=== PATIENT | female | born 1995 | race Caucasian/White ===

== ENCOUNTER → 2016-06-26 | Outpatient (CLI) | payer OTHER, MEDICAID ==
[~2016-06-26] MED LIST: *XRAY -; ACET50TA PO; ALBUTEROL INHALATION; ANUS2.5C2 PR; BACT800T; DOCU10ELUD PO; IRON27TA PO; LABE20TAB PO; MOM30SS PO; PRENTAB74 PO; PROV90AE; TUMS500C PO; TYLENOL #3; TYLENOL#3 PO; ZITHROZPAK PO; [UNRECOGNIZED DRUG - OTHER] PO
[2016-06-26 17:54] LABS: BASO # 0.1 K/mm3 (0.0-0.2); BASO % 1.6 % (0.0-1.0); LARGE UNSTAINED CELL # 0.1 K/mm3 (0.0-0.4); LARGE UNSTAINED CELL % 1.4 % (0.0-4.0); LYMPH # 0.9 K/mm3 (1.5-6.5); LYMPH % 20.8 % (24.0-44.0); MEAN CORPUSCULAR HEMOGLOBIN 25.3 pg (27.0-33.0); MEAN CORPUSCULAR HGB CONC 33.3 g/dl (32.0-36.5); MONO # 0.2 K/mm3 (0.0-0.8); MONO % 4.8 % (0.0-5.0); NEUTROPHILS # 2.8 K/mm3 (1.8-7.7); NEUTROPHILS % 70.3 % (36.0-66.0); PLATELET COUNT, AUTOMATED 132 k/mm3 (150-450)
[2016-06-26 18:01] LABS: ALT/SGPT 16 U/L (12-78); AST/SGOT 11 U/L (15-37); BILIRUBIN,TOTAL 0.2 MG/DL (0.2-1.0); CREATININE FOR GFR 0.72 MG/DL (0.55-1.02); GLOMERULAR FILTRATION RATE > 60.0 (>60); T UPTAKE 23 % (30-39); URIC ACID 3.9 MG/DL (2.6-6.0)
[2016-06-28 10:01] LABS: HBsAg Prenatal NEGATIVE (NEGATIVE)
[2016-06-28 13:35] LABS: CONTROL LINE INT CTR LINE PRESENT; HIV SCRN NEGATIVE (NEGATIVE); HIV SCRN1 NEGATIVE (NEGATIVE)
== END ==
LOC: M LAB 16:25
PROVIDERS: ATTEND Advanced Practice Midwife
DX: O10.012 Pre-existing essential hypertension complicating pregnancy, second trimester (principal); Z36 Encounter for antenatal screening of mother

== ENCOUNTER → 2016-06-28 | Outpatient (CLI) | payer OTHER, MEDICAID ==
--- NOTE | 2016-06-28 10:24 | REP ---
OB ULTRASOUND: Real-time sonographic evaluation of the gravid uterus is performed utilizing transabdominal and endovaginal technique. There is a single living intrauterine gestation with the estimated gestational age 17 weeks 3 days, EDC 12/03/2016. Biometry and Growth: BPD 37 mm = 17 weeks 3 days HC 142 mm = 17 weeks 3 days AC 120 mm = 17 weeks 5 days FL 23 mm = 17 weeks 0 days HC/AC ratio: 1.18 within normal range. Estimated weight 192 grams 46th percentile. SEEN/GROSSLY UNREMARKABLE Lateral ventricles No Posterior fossa No Upper lip No Four-chamber heart Yes LVOT No RVOT No Stomach Yes Cord insertion No Three vessel cord Yes Kidneys No Bladder Yes Spine No Cervical length: Cervix is closed and measures 3.6 cm in length. heart rate: 150 beats per minute position: Vertex. Placenta: Placenta is posterior. There appears to be complete placenta previa, with the inferior edge of the placenta completely covering the internal cervical os. Amniotic fluid: Amniotic fluid appears within normal limits. The exam is limited due to early gestational age, position and body habitus. Signed by Wang Chacon MD 06/28/2016 01:28 P
== END ==
LOC: M RAD 08:09
PROVIDERS: ATTEND Advanced Practice Midwife
DX: O10.012 Pre-existing essential hypertension complicating pregnancy, second trimester (principal); Z3A.17 17 weeks gestation of pregnancy

== ENCOUNTER → 2016-08-08 | Outpatient (CLI) | payer OTHER, MEDICAID ==
--- NOTE | 2016-08-08 13:07 | REP ---
Clinical: Anatomical evaluation. Comparison: 06/28/2016 . Findings: Examination demonstrates a single live intrauterine in cephalic presentation. motion is identified by technologist. Placenta is noted posterior and grade zero without evidence for placenta previa or abruption. Amniotic fluid volume is normal. Cervix measures 3.1 cm in length and appears closed. No evidence for nuchal cord. Gestational age by LMP left 23 weeks 2-day with JENNIFER it is 12/03/2016 . Gestational age by current measurements 23 weeks 2-day with JENNIFER is 12/03/2016 . FHR equals 163 beats per minute. BPD 5.4 cm 22 weeks 3-day HC 20.2 cm 22 weeks 2 days AC 18.7 cm 23 weeks 4 days FL 4.3 cm 24 weeks 0 days HL 3.9 cm 24 weeks 0 days HC/AC ratio 1.08 Estimated weight 604 grams (54th percentile). Anatomical assessment demonstrates normal structures including cranium, choroid plexus, cavum, cerebellum/posterior fossa, four-chamber heart, diaphragm, stomach, cord insertion/three-vessel cord, kidneys/bladder, spine, and extremities. Limited evaluation of the facial features, lungs, and cardiac ventricular outflow tracts. Impression: Single live intrauterine in cephalic presentation demonstrating appropriate interval growth. No gross abnormalities are identified. Anatomical limitations may warrant followup. Signed by Kolby Hobbs MD 08/08/2016 12:59 P
== END ==
LOC: M RAD 11:26
PROVIDERS: ATTEND Obstetrics & Gynecology
DX: Z36 Encounter for antenatal screening of mother (principal); Z3A.23 23 weeks gestation of pregnancy

== ENCOUNTER → 2016-10-04 | Outpatient (CLI) | payer OTHER, MEDICAID ==
--- NOTE | 2016-10-04 16:33 | REP ---
OB ULTRASOUND: Real-time sonographic evaluation of the gravid uterus performed. There is a single living intrauterine gestation. The estimated gestational age is 31 weeks 3 days with EDC 12/03/2016. Today's measurements indicate appropriate growth. BPD 77 mm = 33 weeks 5 days, 41st percentile HC 290 mm = 31 weeks 6 days, 57th percentile AC 269 mm = 31 weeks 0 days, 44th percentile FL 61 mm = 31 weeks 6 days, 56th percentile HC/AC ratio is 1.08 within normal range. Estimated weight 1743 grams, 41st percentile. Cervix closed and measures 3.8 cm in length. heart rate 141 beats per minute. Amniotic fluid within normal limits. TAMMY 12.8, within normal range of 8.7 to 24.0. S/D ratio 2.39 is slightly below normal range of 2.5 to 3.5. RI 0.58 is slightly below normal range of 0.59 to 0.75. SEEN/GROSSLY UNREMARKABLE Lateral ventricles yes Posterior fossa yes Upper lip yes Four-chamber heart yes LVOT yes RVOT yes Stomach yes Cord insertion yes Three vessel cord yes Kidneys yes Bladder yes Spine yes position: Vertex. Placenta: Posterior and fundal, grade 1 with no previa or abruption. Signed by Wang Chacon MD 10/04/2016 04:56 P
== END ==
LOC: M RAD 14:04
PROVIDERS: ATTEND Advanced Practice Midwife
DX: Z36 Encounter for antenatal screening of mother (principal); Z3A.31 31 weeks gestation of pregnancy

== ENCOUNTER → 2016-10-04 | Outpatient (CLI) | payer OTHER, MEDICAID ==
[2016-10-04 18:18] LABS: BASO % 0.1 % (0.0-1.0); EOS % 0.7 % (0.0-3.0); LARGE UNSTAINED CELL # 0.1 K/mm3 (0.0-0.4); LARGE UNSTAINED CELL % 1.5 % (0.0-4.0); LYMPH # 0.8 K/mm3 (1.5-6.5); LYMPH % 16.7 % (24.0-44.0); MEAN CORPUSCULAR HEMOGLOBIN 23.7 pg (27.0-33.0); MEAN CORPUSCULAR HGB CONC 31.3 g/dl (32.0-36.5); MEAN CORPUSCULAR VOLUME 75.6 fl (80.0-96.0); MONO # 0.2 K/mm3 (0.0-0.8); MONO % 3.2 % (0.0-5.0); NEUTROPHILS # 3.9 K/mm3 (1.8-7.7); NEUTROPHILS % 77.8 % (36.0-66.0); PLATELET COUNT, AUTOMATED 122 k/mm3 (150-450); RED CELL DISTRIBUTION WIDTH 15.3 % (11.5-14.5)
== END ==
LOC: M LAB 15:21
PROVIDERS: ATTEND Obstetrics & Gynecology
DX: Z36 Encounter for antenatal screening of mother (principal)

== ENCOUNTER → 2016-10-24 | Outpatient (CLI) | payer OTHER, MEDICAID ==
--- NOTE | 2016-10-25 03:35 | REP ---
Clinical: Anatomical evaluation. Comparison: 10/04/2016 . Findings: Examination demonstrates a single live intrauterine in cephalic presentation. motion is identified by technologist. Placenta is noted posteriorly and grade II without evidence for placenta previa or abruption. Amniotic fluid volume is normal. Cervix measures 3.0 cm in length and appears closed. No evidence for nuchal cord. Gestational age by LMP 34 weeks 2 days with JENNIFER 12/03/2016 . Gestational age by current measurements 34 weeks 1 day with JENNIFER 12/04/2016 . FHR equals 168 beats per minute. Estimated weight 2385 grams ( 46th percentile). Amniotic fluid index equals 10.1 cm (8.0 - 24.8). Umbilical cord SD ratio equals 2.71 (2.00 - 3.00). Anatomical assessment demonstrates normal structures including cranium, choroid plexus, cavum, cerebellum/posterior fossa, facial features, lungs, ventricular outflow tracts, diaphragm, stomach, three-vessel cord, kidneys/bladder. Impression: Single live advanced gestation in cephalic presentation demonstrating appropriate interval growth. Amniotic fluid index normal. In conjunction with prior examination anatomical assessment is complete and normal. Signed by Kolby Hobbs MD 10/25/2016 03:26 A
== END ==
LOC: M RAD 12:07
PROVIDERS: ATTEND Specialist
DX: Z34.83 Encounter for supervision of other normal pregnancy, third trimester (principal)

== ENCOUNTER → 2016-11-07 | Outpatient (REF) | payer OTHER, MEDICAID | LOC: M LAB REF 17:03 | PROVIDERS: ATTEND Advanced Practice Midwife | DX: Z36 Encounter for antenatal screening of mother (principal) ==

== ENCOUNTER → 2016-11-19 | Outpatient (CLI) | payer OTHER, MEDICAID ==
[~2016-11-19] MED LIST changes: +COLA100C3 PO; +PRENTAB9 PO
[2016-11-19 17:27] LABS: ALT/SGPT 23 U/L (12-78); AST/SGOT 19 U/L (15-37); BILIRUBIN,TOTAL 0.4 MG/DL (0.2-1.0); CREATININE FOR GFR 0.74 MG/DL (0.55-1.02); GLOMERULAR FILTRATION RATE > 60.0 (>60); URIC ACID 5.8 MG/DL (2.6-6.0)
[2016-11-19 18:00] LABS: MEAN CORPUSCULAR HEMOGLOBIN 22.8 pg (27.0-33.0); MEAN CORPUSCULAR HGB CONC 31.1 g/dl (32.0-36.5); MEAN CORPUSCULAR VOLUME 73.3 fl (80.0-96.0); RED CELL DISTRIBUTION WIDTH 15.8 % (11.5-14.5); WHITE BLOOD COUNT 6.8 K/mm3 (4.0-10.0)
== END ==
LOC: M LAB 15:37
PROVIDERS: ATTEND Advanced Practice Midwife
DX: O13.3 Gestational [pregnancy-induced] hypertension without significant proteinuria, third trimester (principal)

== ENCOUNTER 2016-11-21 11:06 | Inpatient (IN) | payer OTHER, MEDICAID ==
[~2016-11-21] VITALS: Ht 162.6 cm; Wt 105.0 kg
[2016-11-21] MEDS: PRENATAL VITAMIN TAB PO SCH (09:00)
[~2016-11-21 11:06] MED LIST changes: -COLA100C3 PO; +MEASLES,MUMPS,RUBELLA VACCINE INJ (MMR-II) (90707) SC SCH; -PRENTAB9 PO; +RHOGAM 300 MCG (1500 IU) INJ (J2790) IM SCH
[2016-11-21 11:25] VITALS: BP 136/76
[2016-11-21] MEDS ORDERED: OXYTOCIN 30 UNITS IN 0.9% NaCl 500ML IV BAG (J2590) As Ordered ONE (12:22)
[2016-11-21 12:38] VITALS: BP 134/79
[2016-11-21] MEDS ORDERED: METHYLERGONOVINE MALEATE 0.2 MG TAB PO PRN (13:00)
[2016-11-21] MEDS ORDERED: ACETAMINOPHEN 500 MG TAB PO PRN (13:00)
[2016-11-21] MEDS ORDERED: DIBUCAINE 1% OINTMENT 30GM TOP PRN (13:00)
[2016-11-21] MEDS ORDERED: ONDANSETRON 4MG/2ML VIAL (J2405) IV PRN (13:00)
[2016-11-21 13:22] VITALS: BP 140/72
--- NOTE | 2016-11-21 13:41 | HPE ---
DATE OF ADMISSION: 11/21/2016 21-year-old, (G) 4, para (P) 3 female at 38 and 2/7 weeks gestation by 17 week ultrasound and expected date of confinement (EDC) of 12/03/2016 who presents with regular contractions for the last several hours. She has had a slight amount of vaginal bleeding. There is good movement. COURSE: The patient initiated care at 15 weeks gestation. Her blood pressure was 124/74 and weight 243 pounds. Her course was unremarkable. She has a history of chronic hypertension and did not require medications during . MEDICAL HISTORY: Chronic hypertension. SURGICAL HISTORY: None. ALLERGIES: - IBUPROFEN - AUGMENTIN - CEFZIL - PEDIAZOLE SOCIAL HISTORY: The patient is . She denies cigarettes, alcohol or drug use. FAMILY HISTORY: Noncontributory. PHYSICAL EXAMINATION: Blood pressure 137/84. Pulse 80. She appears uncomfortable. Head and Neck Exam: Normal. Lungs: Clear. Heart: Regular rate and rhythm. Abdomen: Nontender. Gravid. heart tones Category 1. Sterile Vaginal Exam: 10 cm dilated, -1 station, bulging membranes, intact. Contractions every 3-4 minutes. Extremities: Nontender. LABS: Blood type O positive. Rubella immune. RPR nonreactive. Hepatitis B and C negative. Diabetes screen 140. GBS negative on 11/07/2016. ASSESSMENT: 21-year-old, G4, P3, female at 38 and 2/7 weeks gestation who presents in active labor. The patient is admitted on 11/21/2016. Anticipate vaginal delivery.
[2016-11-21 14:20] LABS: MEAN CORPUSCULAR HEMOGLOBIN 22.4 pg (27.0-33.0); MEAN CORPUSCULAR HGB CONC 31.2 g/dl (32.0-36.5); RED CELL DISTRIBUTION WIDTH 15.7 % (11.5-14.5)
[2016-11-21 14:29] VITALS: BP 131/73
[2016-11-21 14:40] VITALS: BP 143/80
[2016-11-21 18:40] VITALS: BP 148/76
--- NOTE | 2016-11-21 20:38 | DN ---
DATE OF DELIVERY: 11/21/2016 PREDELIVERY DIAGNOSIS: Term labor. POSTDELIVERY DIAGNOSIS: Delivered. PROCEDURE: Spontaneous vaginal delivery. ASSOCIATE RESEARCH SCIENTIST: Dr. Damian Betts ANESTHESIA: None. ESTIMATED BLOOD LOSS: 300 mL. FINDINGS: 7 pound 12 ounce female infant. scores 9 and 10. DELIVERY SUMMARY: After a short second stage of approximately three pushes, the patient had spontaneous delivery of a 7 pound 12 ounce female , scores 9 and 10 with no delivery anesthesia. There was no nuchal cord. The shoulders delivered spontaneously with ease. The infant cried spontaneously and was handed to the mother. Cord was doubly clamped and cut. Placenta delivered spontaneously and appeared to be intact. There were no vaginal lacerations present.
[2016-11-21] MEDS ORDERED: DOCUSATE SODIUM 100 MG CAP PO PRN (21:00)
[2016-11-22 06:07] VITALS: BP 117/64
[2016-11-22] MEDS: PRENATAL VITAMIN TAB PO SCH (08:11)
[2016-11-22 18:32] VITALS: BP 119/76
[2016-11-23 05:57] VITALS: BP 120/59
[2016-11-23] MEDS: PRENATAL VITAMIN TAB PO SCH (07:47)
[2016-11-23] MEDS ORDERED: COLA100C3 PO (10:20)
[2016-11-23] MEDS ORDERED: PRENTAB9 PO (10:20)
[2016-11-23] MEDS ORDERED: ACET50TA PO (10:20)
== END 2016-11-23 11:37 | disposition home or self-care (01) | DRG 560 ==
LOC: M LDO 11:06 → M LDI 12:19 → M OBS 15:21
PROVIDERS: ADMIT Specialist; ATTEND Specialist
PROC: 10E0XZZ Delivery of Products of Conception, External Approach (ICD-10-PCS; principal; 2016-11-21)
DX: O80 Encounter for full-term uncomplicated delivery (principal); Z37.0 Single live birth; Z3A.38 38 weeks gestation of pregnancy

== ENCOUNTER → 2019-06-18 | Outpatient (CLI) | payer BC, OTHER ==
[~2019-06-18] MED LIST changes: -ACET50TA PO; +COLA100C5 PO; -DOCU10ELUD PO; +DOCU5LIQ PO; +MAPA500T17 PO; +MAPA500T2 PO; -MEASLES,MUMPS,RUBELLA VACCINE INJ (MMR-II) (90707) SC SCH; +PRENTAB9 PO; -RHOGAM 300 MCG (1500 IU) INJ (J2790) IM SCH
[2019-06-18 14:14] LABS: BASO % 0.4 % (0.0-1.0); EOS % 0.7 % (0.0-3.0); LYMPH # 0.9 10^3/uL (1.5-5.0); LYMPH % 15.5 % (24.0-44.0); MEAN CORPUSCULAR HGB CONC 29.7 g/dl (32.0-36.5); MEAN CORPUSCULAR VOLUME 73.9 fl (80.0-96.0); MONO # 0.3 10^3/uL (0.0-0.8); MONO % 5.8 % (0.0-5.0); NEUTROPHILS # 4.3 10^3/uL (1.5-8.5); NEUTROPHILS % 77.4 % (36.0-66.0); PLATELET COUNT, AUTOMATED 176 10^3/uL (150-450); RED BLOOD COUNT 5.01 10^6/uL (4.00-5.40); WHITE BLOOD COUNT 5.6 10^3/uL (4.0-10.0)
[2019-06-18 15:37] LABS: HEPATITIS B SURFACE ANTIGEN NEGATIVE (NEGATIVE); RUBELLA IgG QUALITATIVE IMMUNE (IMMUNE)
[2019-06-18 15:39] LABS: HEPATITIS C VIRUS ABY INDEX 0.2 INDEX (<0.8); HIV 1&2 SCREEN CENTAUR NEGATIVE (NEGATIVE)
[2019-06-18 15:47] LABS: CHLAMYDIA DNA AMPLIFICATION NEGATIVE (NEGATIVE); GC DNA AMPLIFICATION NEGATIVE (NEGATIVE)
== END ==
LOC: M LAB 12:32
PROVIDERS: ATTEND Advanced Practice Midwife
DX: Z34.81 Encounter for supervision of other normal pregnancy, first trimester (principal); Z3A.08 8 weeks gestation of pregnancy

== ENCOUNTER → 2019-07-02 | Outpatient (CLI) | payer BC, OTHER | LOC: M PLALAB 10:44 | PROVIDERS: ATTEND Advanced Practice Midwife | DX: Z36.89 Encounter for other specified antenatal screening (principal) ==

== ENCOUNTER → 2019-08-16 | Outpatient (CLI) | payer BC, OTHER ==
--- NOTE | 2019-08-16 16:10 | REP ---
Surgical ultrasound for anatomy: There is a single intrauterine gestation in a vertex presentation. There is movement and cardiac activity. The heart rate is 139 beats per minute. The placenta is anterior. There is no placenta previa. The placenta is grade 1. The amniotic fluid volume subjectively is normal. The cervix measures 3.8 cm in length. heart rate is 100 and 39 beats per minute. Gestational age by today's ultrasound is 19 weeks 2 days/JENNIFER 01/08/2020. weight is 297 grams/0 pounds, 10 ounces. This is the 55th percentile for 19 weeks 2 days. The following anatomic structures are identified and are unremarkable: Cranium, choroid plexus, cavum septum pellucidum, cerebellum, cisterna magna, facial profile, upper lip, four-chamber heart, cardiac right and left ventricular outflow tracts, diaphragm, stomach, cord insertion, three-vessel cord, kidneys, bladder, spine and upper lower extremities. There are no anomalies. Electronically Signed by Wang Gaines MD 08/16/2019 04:02 P
== END ==
LOC: M WHC 13:43
PROVIDERS: ATTEND Advanced Practice Midwife
DX: Z34.92 Encounter for supervision of normal pregnancy, unspecified, second trimester (principal); Z3A.19 19 weeks gestation of pregnancy

== ENCOUNTER → 2019-11-04 | Outpatient (CLI) | payer BC ==
--- NOTE | 2019-11-05 03:07 | REP ---
Clinical: Growth evaluation. Comparison: 08/16/2019 . Findings: Examination demonstrates a single live intrauterine in cephalic presentation. motion is identified by technologist. Placenta is noted anterior and grade I without evidence for placenta previa or abruption. Amniotic fluid volume is normal. Cervix measures 3.2 cm in length and appears closed. No evidence for nuchal cord. Gestational age by LMP 30 weeks 5 days with JENNIFER 01/08/2020 . Gestational age by current measurements 31 weeks 6 days with JENNIFER 12/31/2019 . FHR equals 146 beats per minute. Amniotic fluid index: 15.1 cm Estimated weight by current biometrical measurements 1908 grams ( 74th percentile). Anatomical assessment demonstrates normal structures including cranium, choroid plexus, cavum, cerebellum/posterior fossa, facial features, lungs, four-chamber heart/ventricular outflow tracts, diaphragm, stomach, cord insertion/three-vessel cord, kidneys/bladder, spine, and extremities. Impression: single live intrauterine in cephalic presentation demonstrating appropriate interval growth. No gross abnormalities are identified.
== END ==
LOC: M WHC 08:04
PROVIDERS: ATTEND Advanced Practice Midwife
DX: O10.013 Pre-existing essential hypertension complicating pregnancy, third trimester (principal); Z3A.31 31 weeks gestation of pregnancy

== ENCOUNTER → 2019-11-23 | Outpatient (REF) | payer OTHER ==
[~2019-11-23] MED LIST changes: +FIOR1CAP PO
[2019-11-23 16:13] LABS: HEMATOCRIT 30.2 % (36.0-47.0); MEAN CORPUSCULAR HEMOGLOBIN 21.4 pg (27.0-33.0); MEAN CORPUSCULAR HGB CONC 29.8 g/dl (32.0-36.5); MEAN CORPUSCULAR VOLUME 71.7 fl (80.0-96.0); PLATELET COUNT, AUTOMATED 143 10^3/uL (150-450); RED BLOOD COUNT 4.21 10^6/uL (4.00-5.40); WHITE BLOOD COUNT 5.5 10^3/uL (4.0-10.0)
[2019-11-23 16:42] LABS: CREATININE,RANDOM URINE 35.3 MG/DL; TOTAL PROTEIN,RANDOM URINE 6.4 MG/DL (0.0-12.0)
[2019-11-23 16:54] LABS: ALT/SGPT 16 U/L (12-78); BILIRUBIN,TOTAL 0.3 MG/DL (0.2-1.0); CREATININE FOR GFR 0.59 MG/DL (0.55-1.30); GLOMERULAR FILTRATION RATE > 60.0 (>60); LDH LACTATE DEHYDROGENASE 190 U/L (84-246)
== END ==
LOC: M PLALAB 14:06
PROVIDERS: ATTEND Specialist
DX: O14.90 Unspecified pre-eclampsia, unspecified trimester (principal)

== ENCOUNTER → 2019-11-25 | Outpatient (CLI) | payer BC ==
--- NOTE | 2019-11-26 03:17 | REP ---
Clinical: Growth evaluation. Comparison: 11/04/2019 . Findings: Examination demonstrates a single live intrauterine in cephalic presentation. motion is identified by technologist. Placenta is noted anterior and grade I I without evidence for placenta previa or abruption. Amniotic fluid volume is normal. Cervix measures 3.0 cm in length and appears closed. Nuchal cord cannot be excluded. Gestational age by first US 33 weeks 5 days with JENNIFER 01/08/2020 . Gestational age by current measurements 33 weeks 4 days with JENNIFER 01/09/2020 . FHR equals 158 beats per minute. Estimated weight 2302 grams ( 49th percentile). Amniotic fluid index: 11.1 cm Impression: 1. Single live intrauterine in cephalic presentation demonstrating appropriate interval growth. 2. Nuchal cord cannot be excluded.
== END ==
LOC: M WHC 09:18
PROVIDERS: ATTEND Advanced Practice Midwife
DX: O10.013 Pre-existing essential hypertension complicating pregnancy, third trimester (principal); Z3A.33 33 weeks gestation of pregnancy

== ENCOUNTER → 2019-11-26 | Outpatient (REF) | payer OTHER | LOC: M SFHCWAGY 17:34 | PROVIDERS: ATTEND Specialist | DX: O10.013 Pre-existing essential hypertension complicating pregnancy, third trimester (principal) ==

== ENCOUNTER 2019-11-29 07:52 | Outpatient (CLI) | payer BC, OTHER ==
[~2019-11-29] VITALS: Ht 162.6 cm; Wt 108.9 kg
[~2019-11-29 07:52] MED LIST changes: -FIOR1CAP PO
[2019-11-29 07:55] VITALS: BP 130/75
[2019-11-29] MEDS ORDERED: FIOR1CAP PO (08:18)
[2019-11-29 08:50] VITALS: BP 120/65
[2019-11-29] MEDS ORDERED: IRON SUCROSE 500 MG in NS 250 ML OVER 4 HRS IV ONE (09:00)
[2019-11-29 09:50] VITALS: BP 116/64
[2019-11-29 10:50] VITALS: BP 116/56
[2019-11-29 11:50] VITALS: BP 122/71
[2019-11-29 14:00] VITALS: BP 124/71
== END 2019-11-29 14:00 | disposition home or self-care (01) ==
LOC: M INFU 07:52
PROVIDERS: ATTEND Specialist
DX: D64.9 Anemia, unspecified (principal); Z88.1 Allergy status to other antibiotic agents; Z88.8 Allergy status to other drugs, medicaments and biological substances
CPT/HCPCS: 96365; 96366; J1756

== ENCOUNTER → 2019-12-16 | Outpatient (CLI) | payer BC ==
[~2019-12-16] MED LIST changes: +FIOR1CAP PO; +LABE200T32 PO
--- NOTE | 2019-12-16 10:18 | REP ---
OB ULTRASOUND: Real-time sonographic evaluation of the gravid uterus is performed. There is a single intrauterine gestation with an estimated gestational age 37 week 0 days, EDC 01/06/2020. Today's measurements indicate appropriate growth. Biometry and Growth: BPD 91 mm = 36 weeks 5 days, 47th percentile HC 337 mm = 38 weeks 5 days, 78th percentile AC 321 mm = 36 weeks 0 days, 35th percentile FL 72 mm = 36 weeks 6 days, 47th percentile HC/AC ratio 1.05, normal range 0.91 to 1.10. Estimated weight 2980 grams, 47th percentile. Cervical length: Closed and measures 3.1 cm in length. heart rate: 147 beats per minute. position: Vertex. Placenta: Anterior and grade 2 with no previa or abruption. Amniotic fluid: Within normal limits, TAMMY 10.8, normal range 7.5 to 24.4.
== END ==
LOC: M WHC 09:20
PROVIDERS: ATTEND Advanced Practice Midwife
DX: O10.013 Pre-existing essential hypertension complicating pregnancy, third trimester (principal); Z3A.37 37 weeks gestation of pregnancy

== ENCOUNTER 2019-12-20 10:00 | Inpatient (IN) | payer BC, OTHER ==
[2019-12-20] VITALS (16 sets, daily range): BP systolic 96–137; BP diastolic 51–81
[~2019-12-20] VITALS: Ht 162.6 cm; Wt 109.8 kg
[2019-12-20] MEDS: LABETALOL 200 MG TAB PO SCH ×2 (09:00→20:25)
[~2019-12-20 10:00] MED LIST changes: -LABE200T32 PO
[2019-12-20] MEDS ORDERED: LACTATED RINGER'S 1000 ML IV STA (11:00)
[2019-12-20] MEDS ORDERED: LABE200T32 PO (11:13)
[2019-12-20] MEDS ORDERED: TUMS500C PO (11:13)
[2019-12-20] MEDS ORDERED: miSOPROStol 50 MCG 1/2 TAB (S0191) PO ONE (11:15)
--- NOTE | 2019-12-20 11:40 | HPEPDOC ---
Obstetrical History & Physical General Date of Admission Dec 20, 2019 at 10:00 Primary Care Physician: AFRICA LEYVA CNM History of Present Illness Patient is a 24-year-old female who is a at 37.4 weeks gestation with an JENNIFER of 01/06/20 based off of her LMP and consistent with her first trimester ultrasound. She initiated care in her first trimester with [facility]. Her has been complicated by CHTN. She was started on Labetalol 100 mg BID then increased to 200 mg BID on 11/23/19. She also was diagnosed with anemia and had an iron transfusion on 11/29/19. She presents for IOL due to CHTN with increasing symptoms over the last few weeks along with a need fo ran increase in hypertensive medication. She currently denies any preeclamptic symptoms. Reports occasional contractions and active movement. She denies leaking of fluid. Information Provided By: Patient Care Care: Good Care Dating Final EDC: Jan 06, 2020 Final EDC by: LMP LMP: Apr 01, 2019 EGA at Admission: 37.4 Antepartum Course Diagnos(e)s CHTN anemia thrombocytopenia Height (inches): 24 Pre- weight (lbs.): 220 Admission Weight (lbs.): 239 Change in Weight (lbs.): 19 Past Medical History Past Obstetrical History #1: Past Obstetrical History: Primgravida Gestation: 40 Type of Delivery: Spontaneous Vaginal Del. (06/2012) Sex of Infant: Female (7 lbs. 6 oz.) Complications: No Past Obstetrical History #2: Past Obstetrical History: Multigravida Gestation: 38 Type of Delivery: Spontaneous Vaginal Del. (02/2014) Sex of : Male (7 lbs. 13 oz.) Complications: No Past Obstetrical History #3: Past Obstetrical History: Multigravida Gestation: 37 Type of Delivery: Spontaneous Vaginal Del. (09/2015) Sex of : Female (6 lbs. 1 oz.) Complications: Yes (GHTN) Past Obstetrical History #4: Past Obstetrical History: Multigravida Gestation: 38.2 Type of Delivery: Spontaneous Vaginal Del. 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 Past Medical History Medical History CHTN Surgical History: Denies/None Family History Significant Family History: Asthma, Hypertension, Other (thyroid disease) Social History Marital Status: Family situation: Spouse/partner home Psychosocial History: No pertinent psych hx * Smoker: non-smoker Alcohol: Denies Drugs: denies Abuse Violence Screening Have you been hit/kicked/slapp: No Have you been sexually assault: No Allergies Coded Allergies: cefprozil (Verified Allergy, Severe, THROAT SWELLS, 11/29/19) ibuprofen (Verified Allergy, Severe, THROAT CLOSES, SWELLING OF LIPS AND TONGUE, 11/29/19) erythromycin base (Verified Allergy, Intermediate, RASH AND ITCHING, 12/20/19) sulfisoxazole (Verified Allergy, Intermediate, RASH AND ITCHING, 12/20/19) vancomycin (Verified Allergy, Intermediate, RASH, 11/29/19) amoxicillin (Verified Allergy, Unknown, UNKNOWN - CHILD, 12/20/19) clavulanic acid (Verified Allergy, Unknown, UNKNOWN - CHILD, 12/20/19) Medications Scheduled Labetalol HCl (Labetalol HCl) 200 Mg Tablet, 200 MG PO BID No.137/Iron/Folic Acd ( Vitamin Tablet) 1 Tab Tab, 1 TAB PO DAILY Scheduled PRN Calcium Carbonate (Tums) 200 Mg Tab.chew, 1,000 MG PO for HEARTBURN Physical Examination Physical Examination GENERAL: Alert and oriented times three. BREAST: . ABDOMEN: Gravid and non-tender to touch. FETUS: Is vertex (VTX) by sterile vaginal examination (SVE), fetus is vertex (VTX) by [place]. HEART RATE: Regular rate and rhythm. LUNGS: Clear to auscultation (CTA). EXTREMITIES: Generalized edema bilateral legs and feet.. No clonus. Deep tendon reflexes (DTRs) + 2. Vital Signs/I&O Vital Signs Date Time Temp Pulse Resp B/P (MAP) Pulse Ox O2 Delivery O2 Flow Rate FiO2 12/20/19 10:30 98.3 93 16 120/81 (94) 98 Room Air Laboratory Data 24H LABS Laboratory Tests 2 12/20/19 10:20: Serology Scanned Report Hepatitis B Testing Item Value Date Time Creatinine 0.65 MG/DL 12/20/19 1140 Glomerular Filtration Rate > 60.0 12/20/19 1140 Uric Acid 5.1 MG/DL 12/20/19 1140 Total Bilirubin 0.3 MG/DL 12/20/19 1140 Aspartate Amino Transf (AST/SGOT) 21 U/L 12/20/19 1140 Alanine Aminotransferase (ALT/SGPT) 21 U/L 12/20/19 1140 Lactate Dehydrogenase 206 U/L 12/20/19 1140 CBC/BMP Item Value Date Time White Blood Count 5.4 10^3/uL 12/20/19 1140 Red Blood Count 4.36 10^6/uL 12/20/19 1140 Hemoglobin 9.9 g/dl L 12/20/19 1140 Hematocrit 32.9 % L 12/20/19 1140 Mean Corpuscular Volume 75.5 fl L 12/20/19 1140 Mean Corpuscular Hemoglobin 22.7 pg L 12/20/19 1140 Mean Corpuscular Hemoglobin Concent 30.1 g/dl L 12/20/19 1140 Red Cell Distribution Width 22.8 % H 12/20/19 1140 Platelet Count 181 10^3/uL 12/20/19 1140 Urine Culture: No Growth Pertinent Laboratoy Data Blood Type: O+ RBC Antibody Screen: Negative HIV: Negative Hepatitis B: Negative Hepatitis C: Negative Rapid Plasma Reagin: Nonreactive Rubella: Immune Chlamydia/Gonorrhea: Negative Group B Streptococcus: Negative Anatomy Ultrasound Ultrasound Date: Dec 16, 2019 Placenta Location: Anterior Normal Anatomy: Yes Placenta Previa: No Estimated Weight (grams): 2980 Vaginal Examination Dilation: 3 cm Effacement: other (75%) Station: -2 Cervical Consistency: Soft Cervical Position: Anterior Presentation: Cephalic presentation Position: Vertex (occiput) Assessment Heart Rate (FHR): 150 Variability: Moderate Accelerations: Positive Decelerations: None Tocometer Contractions: No Multi-drug resistant Organism: No history of MDRO Assessment/Plan Assessment IUP at 37.4 weeks gestation Category I FHR tracing GBS negative CHTN affecting anemia Plan Admit to L&D for induction of labor for CHTN during with the need for increasing medication recently. Dr. Lyons aware of patient being in department and plan of care collaborated with him. OON ad hetal. Diet: regular now and when switched to IV Pitocin clear liquid diet.. Group B Streptococcus (GBS) negative. Labs and intravenous (IV) per unit protocol. Counseled on Cytotec and IV Pitocin for induction of labor (IOL). Anesthesia consult per patient's request. Cytotec ordered and to be started per order. Anticipate cervical ripening. C-S as appropriate. AFRICA LEYVA CNM Dec 20, 2019 11:40
[2019-12-20 11:58] LABS: HEMATOCRIT 32.9 % (36.0-47.0); HEMOGLOBIN 9.9 g/dl (12.0-15.5); MEAN CORPUSCULAR HEMOGLOBIN 22.7 pg (27.0-33.0); MEAN CORPUSCULAR HGB CONC 30.1 g/dl (32.0-36.5); MEAN CORPUSCULAR VOLUME 75.5 fl (80.0-96.0); PLATELET COUNT, AUTOMATED 181 10^3/uL (150-450); RED BLOOD COUNT 4.36 10^6/uL (4.00-5.40); WHITE BLOOD COUNT 5.4 10^3/uL (4.0-10.0)
[2019-12-20 12:34] LABS: ALT/SGPT 21 U/L (12-78); BILIRUBIN,TOTAL 0.3 MG/DL (0.2-1.0); CREATININE FOR GFR 0.65 MG/DL (0.55-1.30); GLOMERULAR FILTRATION RATE > 60.0 (>60); LDH LACTATE DEHYDROGENASE 206 U/L (84-246); URIC ACID 5.1 MG/DL (2.6-6.0)
[2019-12-20] MEDS ORDERED: miSOPROStol 50 MCG 1/2 TAB (S0191) PV ONE (16:00)
--- NOTE | 2019-12-20 19:59 | IPNPDOC ---
Obstetrical Progress Note Date of Service Dec 20, 2019 Subjective Patient rpeorts she is feeling her contractions but is coping well. Objective Vital Signs Date Time Temp Pulse Resp B/P (MAP) Pulse Ox O2 Delivery O2 Flow Rate FiO2 12/20/19 18:42 98.6 64 16 122/71 (88) 12/20/19 10:30 98 Room Air Assessment Heart Rate (FHR): 135 Variability: Moderate Accelerations: Positive Decelerations: None Heart Rate Tracing: Category I Tocometer Contractions: Yes Frequency: regular Strength: palpated as moderate Sterile Vaginal Examination Dilation: 4 cm Effacement (%): 80% Station: -1 Cervical Consistency: Soft Cervical Position: Anterior Postion/Presentation: Cephalic presentation Assessment and Plan Age: 24 : 5 Term: 4 Pre-term: 0 Abortions: 0 Livin EGA at Admission: 37.4 Status: Reassuring Group B Streptococcus: Negative Anticipate: Vaginal Delivery Additional Comments AROM after discussing options with patient. Large amount of clear fluid with AROM. She desires to have an unmedicated delivery. IV Pitocin to be started per order. AFRICA LEYVA CNM Dec 20, 2019 19:59
[2019-12-20] MEDS ORDERED: LR 1,000 ML IV SCH (20:01)
[2019-12-20] MEDS ORDERED: OXYTOCIN DRIP 30 UNITS in IV 1 EA IV SCH (20:15)
--- NOTE | 2019-12-20 22:56 | IPNPDOC ---
Obstetrical Progress Note Date of Service Dec 20, 2019 Subjective Patient is uncomfortable with contractions but reports she is coping. Objective Vital Signs Date Time Temp Pulse Resp B/P (MAP) Pulse Ox O2 Delivery O2 Flow Rate FiO2 12/20/19 21:54 86 16 106/51 (69) 12/20/19 19:44 98.0 12/20/19 10:30 98 Room Air Assessment Heart Rate (FHR): 140 Variability: Moderate Accelerations: Positive Decelerations: Early Heart Rate Tracing: Category I Tocometer Frequency: regular Sterile Vaginal Examination Dilation: 6 cm Effacement (%): 90% Station: -1 Cervical Consistency: Soft Cervical Position: Anterior Assessment and Plan Additional Comments FSE placed to help with maintaining FHR tracing and for ease of patient with movement. AFRICA LEYVA CNM Dec 20, 2019 22:56
[2019-12-20] MEDS ORDERED: ONDANSETRON 4MG/2ML VIAL As Ordered ONE (23:28)
[2019-12-20] MEDS ORDERED: ONDANSETRON 4MG/2ML VIAL IV PRN (23:30)
[2019-12-21] VITALS (8 sets, daily range): BP systolic 98–114; BP diastolic 54–64
[2019-12-21] MEDS ORDERED: OXYTOCIN DRIP 30 UNITS in IV 1 EA IV SCH (00:21)
--- NOTE | 2019-12-21 00:28 | DNPDOC ---
[facility] Delivery Note Delivery Note DATE OF DELIVERY: 12/21/19 at 0001 PREDELIVERY DIAGNOSIS: 37-5/7 weeks' gestation and labor. POST DELIVERY DIAGNOSIS: Delivered. PROCEDURE: Spontaneous vaginal delivery. ASSURANCE SENIOR MANAGER: Afirca Escobedo CNM, ELEN ANESTHESIA: none. ESTIMATED BLOOD LOSS: 250 mL. FINDINGS: 6 pounds 15 ounces; 3140 grams; male , Score 8/9, nuchal cord times 2 loose, CHTN. DELIVERY SUMMARY: Patient is a 24-year-old female who is now a who pres ented to L&D for an induction of labor due to CHTN. She received 2 doses of Cytotec and IV Pitocin for induction. She progressed to fully dilated at 2355 and pushed to a living male in the GOLD position with restitution to LOT. The cord x2 was noted and reduced. The anterior shoulder delivered with ease and the corpus immediately followed. The baby was placed on the maternal abdomen active and crying with stimulation. The cord was clamped and cut by the FOB. a 3-vessel cord was noted. The placenta delivered spontaneously and intact at 0006. Uterine hemostasis was achieved via rapid infusion of IV Pitocin and fundal massage. The vagina, cervix, and perineum were inspected and found to be intact. All counts of instruments are correct. They are naming their son Buddy. She plans for breastfeed. Both mom and baby are in stable condition. AFRICA ESCOBEDO CNM Dec 21, 2019 00:28
[2019-12-21] MEDS ORDERED: DIBUCAINE 1% OINTMENT 30GM TOP PRN (00:30)
[2019-12-21] MEDS ORDERED: MEASLES,MUMPS,RUBELLA VACCINE INJ (MMR-II) (90707) SC SCH (00:30)
[2019-12-21] MEDS ORDERED: ACETAMINOPHEN TAB 650MG DOSE (2X325MG) PO PRN (00:30)
[2019-12-21] MEDS ORDERED: IBUPROFEN 600MG TAB PO PRN (00:30)
[2019-12-21] MEDS ORDERED: ACETAMINOPHEN 500 MG TAB PO PRN (00:30)
[2019-12-21] MEDS ORDERED: RHOGAM 300 MCG (1500 IU) INJ (J2790) IM SCH (00:30)
[2019-12-21] MEDS ORDERED: METHYLERGONOVINE MALEATE 0.2 MG TAB PO PRN (00:30)
[2019-12-21] MEDS ORDERED: IBUPROFEN 800 MG TAB PO PRN (00:30)
[2019-12-21] MEDS ORDERED: DOCUSATE SODIUM 100 MG CAP PO PRN (00:30)
[2019-12-21] MEDS ORDERED: ANUSOL HC CREAM 30GM TOP PRN (00:30)
[2019-12-21] MEDS: PRENATAL VITAMINS CHEWABLE TABLET PO SCH (08:36)
[2019-12-21] MEDS: LABETALOL 100 MG TAB PO SCH ×2 (08:36→21:13)
[2019-12-22 06:00] VITALS: BP 114/57
[2019-12-22 08:26] VITALS: BP 124/60
[2019-12-22] MEDS: LABETALOL 100 MG TAB PO SCH (08:26)
[2019-12-22] MEDS: PRENATAL VITAMINS CHEWABLE TABLET PO SCH (08:26)
== END 2019-12-22 13:52 | disposition home or self-care (01) | DRG 560 ==
LOC: M LDI 10:00 → M OBS 12-21 02:24
PROVIDERS: ADMIT Advanced Practice Midwife; ATTEND Advanced Practice Midwife
PROC: 3E033VJ Introduction of Other Hormone into Peripheral Vein, Percutaneous Approach (ICD-10-PCS; 2019-12-20)
PROC: 10907ZC Drainage of Amniotic Fluid, Therapeutic from Products of Conception, Via Natural or Artificial Opening (ICD-10-PCS; 2019-12-20)
PROC: 10E0XZZ Delivery of Products of Conception, External Approach (ICD-10-PCS; principal; 2019-12-21)
DX: O10.92 Unspecified pre-existing hypertension complicating childbirth (principal); D69.6 Thrombocytopenia, unspecified; O99.12 Other diseases of the blood and blood-forming organs and certain disorders involving the immune mechanism complicating childbirth; Z37.0 Single live birth; Z3A.37 37 weeks gestation of pregnancy; D64.9 Anemia, unspecified; O99.02 Anemia complicating childbirth; Z88.2 Allergy status to sulfonamides; Z88.8 Allergy status to other drugs, medicaments and biological substances; Z88.0 Allergy status to penicillin; Z88.6 Allergy status to analgesic agent

== ENCOUNTER → 2020-06-29 | Outpatient (REF) | payer OTHER ==
[~2020-06-29] MED LIST changes: +LABE200T32 PO
== END ==
LOC: M SFHCWAGY 13:30
PROVIDERS: ATTEND Advanced Practice Midwife
DX: Z12.4 Encounter for screening for malignant neoplasm of cervix (principal)

== ENCOUNTER 2021-05-09 09:54 | Emergency (ER) | payer BC, OTHER ==
[~2021-05-09] VITALS: Ht 165.1 cm; Wt 102.8 kg
[2021-05-09] MEDS ORDERED: ECOT81TA5 PO (10:01)
--- OUTSIDE RECORDS SUMMARY | 2021-05-09 10:01 | CCD | Continuity of Care Document ---
Demographics Address [address] [place] [address] Home Phone [phone] Preferred Language Unknown Marital Status Unknown Christian Affiliation Unknown Race White Ethnic Group Not or Author Author [facility] Organization Unknown Address [address] [place] [address] [place] [address] Phone [phone] Care Team Providers Care Early Intervention School Psychologist Name Role Phone [facility] [phone] Problems Description No Information Available Social History Type Date Description Comments Sex Unknown ETOH Use Denies alcohol use Tobacco Use Start: Unknown Patient has never smoked Tobacco Use Start: Unknown The Patient Has Never Vaped Smoking Status Reviewed: 03/21/21 The Patient Has Never Vaped Allergies and adverse reactions Active Allergies Criticality Reaction | Severity Comments Date Ibuprofen Unable to assess criticality Tongue swelling 10/09/2020 Augmentin Unable to assess criticality Tongue swelling 10/09/2020 Vancomycin Unable to assess criticality rash 10/09/2020 Erythromycin Unable to assess criticality Difficulty swallowing 03/21/2021 Medications Active Medications SIG Qnty Indications Ordering Provide r Date Tylenol Cold this am Unknown Immunizations Description No Information Available Vital Signs Date Vital Result Comment 03/21/2021 10:36am BP Systolic 130 mmHg BP Diastolic 81 mmHg Heart Rate 82 /min Respiratory Rate 20 /min O2 % BldC Oximetry 100 % Body Temperature 98.3 F Weight 200.00 lb Height 64 inches 5'4" BMI (Body Mass Index) 34.3 kg/m2 Pain Level 3 11/15/2020 9:54am BP Systolic 121 mmHg BP Diastolic 88 mmHg Heart Rate 91 /min Respiratory Rate 12 /min O2 % BldC Oximetry 96 % Body Temperature 96.2 F Weight 214.00 lb Height 64 inches 5'4" BMI (Body Mass Index) 36.7 kg/m2 Pain Level 4 Results Description No Information Available Procedures Date Code Description Status 03/21/2021 88714 Office/Outpatient Established Lo w MDM 20-29 Min Completed 11/15/2020 26099 Office/Outpatient Established Mo d MDM 30-39 Min Completed Medical Devices Description No Information Available Encounters Type Date Location Provider Dx Diagnosis Office Visit 03/21/2021 9:00a Main Office Farzaneh Pritchard.A. J0 6.9 Acute upper respiratory infection, unspecified Z20.828 Contact w and exposure to ot h viral communicable diseases Office Visit 11/15/2020 9:40a Main Office Sussy PritchardAMichael Taylor0 2.9 Acute pharyngitis, unspecified J06.9 Acute upper respiratory infe ction, unspecified Z20.828 Contact w and exposure to ot h viral communicable diseases Assessments Date Code Description Provider 03/21/2021 J06.9 Acute upper respiratory infectio n, unspecified Rodrigue Man, P.A. 03/21/2021 Z20.828 Contact with and (gaxiola spected) exposure to other viral communicable diseases Rodrigue Man, P.A. 11/15/2020 J02.9 Acute pharyngitis, unspecified Claudia Man, P.A. 11/15/2020 J06.9 Acute upper respiratory infectio n, unspecified Rodrigue Man, P.A. 11/15/2020 Z20.828 Contact with and (gaxiola spected) exposure to other viral communicable diseases Rodrigue Man, P.A. Plan of Treatment No Information Available Functional Status Description No Information Available Mental Status Description No Information Available Referrals Description No Information Available
--- OUTSIDE RECORDS SUMMARY | 2021-05-09 10:01 | CCD | Continuity of Care Document ---
Demographics Address [address] [place] [address] Home Phone [phone] Preferred Language Unknown Marital Status Unknown Uatsdin Affiliation Unknown Race White Ethnic Group Not or Author Author Corby GEORGES [facility] Organization Unknown Address [address] [place] [address] [place] [address] Phone [phone] Care Team Providers Care Director Global Intelligence Name Role Phone [facility] [phone] Problems Description No Information Available Social History [...] Available Procedures Date Code Description Status 03/21/2021 55890 Office/Outpatient Established Lo w MDM 20-29 Min Completed 11/15/2020 14708 Office/Outpatient Established Mo d MDM 30-39 Min Completed Medical Devices Description No Information Available Encounters Type Date Location Provider Dx Diagnosis Office Visit 03/21/2021 9:00a Main Office Naren Pritchard J0 6.9 Acute upper respiratory infection, unspecified Z20.828 Contact w and exposure to ot h viral communicable diseases Office Visit 11/15/2020 9:40a Main Office Naren Pritchard J0 2.9 Acute pharyngitis, unspecified J06.9 Acute upper respiratory infe ction, unspecified Z20.828 Contact w and exposure to ot h viral communicable diseases Assessments Date Code Description Provider 05/04/2021 Z20.828 Contact with and (gaxiola spected) exposure to other viral communicable diseases TREVOR Morrissey 03/21/2021 J06.9 Acute upper respiratory infectio n, unspecified Rodrigue Man, P.A. 03/21/2021 Z20.828 Contact with and (gaxiola spected) exposure to other viral communicable diseases Rodrigue Man, P.A. 11/15/2020 J02.9 Acute pharyngitis, unspecified Claudia Man, P.A. 11/15/2020 J06.9 Acute upper respiratory infectio n, unspecified Rodrigue Man, P.A. 11/15/2020 Z20.828 Contact with and (gaxiola spected) exposure to other viral communicable diseases Rodrigue Man, P.AMichael Plan of Treatment No Information Available Functional Status Description No Information Available Mental Status Description No Information Available Referrals Description No Information Available
--- OUTSIDE RECORDS SUMMARY | 2021-05-09 10:01 | CCD | Continuity of Care Document ---
Demographics Address [address] [place] [address] Home Phone [phone] Preferred Language Unknown Marital Status Unknown Adventism Affiliation Unknown Race White Ethnic Group Not or Author Author Corby ZAMORA Organization Unknown Address [address] [place] [address] [place] [address] Phone [phone] Care Team Providers Care Board Member Name Role Phone [facility] [phone] Problems Description No Information Available Social History Type Date Description Comments Sex Unknown ETOH Use Denies alcohol use Tobacco Use Start: Unknown Patient has never smoked Tobacco Use Start: Unknown The Patient Has Never Vaped Smoking Status Reviewed: 03/21/21 The Patient Has Never Vaped Allergies, Adverse Reactions, Alerts Active Allergies Criticality Reaction | Severity Comments [...] Available Procedures Date Code Description Status 03/21/2021 57360 Office/Outpatient Established Lo w MDM 20-29 Min Completed 11/15/2020 63753 Office/Outpatient Established Mo d MDM 30-39 Min Completed 10/09/2020 00552 Office/Outpatient New Low MDM 30 -44 Minutes Completed Medical Devices Description No Information Available Encounters Type Date Location Provider Dx Diagnosis Office Visit 03/21/2021 9:00a Main Office Rodrigue Figueroa Donovan, P.A. J0 6.9 Acute upper respiratory infection, unspecified Z20.828 Contact w and exposure to ot h viral communicable diseases Office Visit 11/15/2020 9:40a Main Office Rodrigue Zamora, P.A. J0 2.9 Acute pharyngitis, unspecified J06.9 Acute upper respiratory infe ction, unspecified Z20.828 Contact w and exposure to ot h viral communicable diseases Office Visit 10/09/2020 1:15p Main Office TREVOR Munguia J06.9 Acute upper respiratory infection, unspecified Z20.828 Contact w and exposure to ot h viral communicable diseases Assessments Date Code Description Provider 03/21/2021 J06.9 Acute upper respiratory infectio n, unspecified Rodrigue M Donovan, P.A. 03/21/2021 Z20.828 Contact with and (gaxiola spected) exposure to other viral communicable diseases Rodrigue Carolina Donovan, P.A. 11/15/2020 J02.9 Acute pharyngitis, unspecified Claudia romyjames Carolina Donovan, P.A. 11/15/2020 J06.9 Acute upper respiratory infectio n, unspecified Rodrigue M Donovan, P.A. 11/15/2020 Z20.828 Contact with and (gaxiola spected) exposure to other viral communicable diseases Rodrigue M Donovan, P.A. 10/12/2020 Z20.828 Contact with and (gaxiola spected) exposure to other viral communicable diseases Rodrigue Carolina Donovan, P.A. 10/09/2020 J06.9 Acute upper respiratory infectio n, unspecified TREVOR Munguia 10/09/2020 Z20.828 Contact with and (gaxiola spected) exposure to other viral communicable diseases TREVOR Munguia Plan of Treatment No Information Available Functional Status Description No Information Available Mental Status Description No Information Available Referrals Description No Information Available
--- OUTSIDE RECORDS SUMMARY | 2021-05-09 10:01 | CCD | Continuity of Care Document ---
Demographics Address [address] [place] [address] Home Phone [phone] Preferred Language Unknown Marital Status Unknown Congregational Affiliation Unknown Race White Ethnic Group Not or Author Author Corby ZAMORA Organization Unknown Address [address] [place] [address] [place] [address] Phone [phone] Care Team Providers Care Plan Examiner Name Role Phone [facility] [phone] Problems Description No Information Available Social History [...] Available Procedures Date Code Description Status 03/21/2021 54033 Office/Outpatient Established Lo w MDM 20-29 Min Completed 11/15/2020 80886 Office/Outpatient Established Mo d MDM 30-39 Min Completed 10/09/2020 95984 Office/Outpatient New Low MDM 30 -44 Minutes [...]
--- OUTSIDE RECORDS SUMMARY | 2021-05-09 10:01 | CCD ---
Author Author [facility] Organization [facility] Address Unknown Phone Unavailable Care Team Providers Care Lobby Porter Name Role Phone Mary Escobedo Unavailable PROBLEMS Type Condition ICD9-CM Code MAI76-IA Code Onset Dates Condition S tatus W/U Status Risk SNOMED Code Notes Problem Esophageal reflux 530.81 Active confirmed 24 4472089 Problem Extrinsic asthma, unspecified 493.00 Active confirm ed 259305432 Problem Mild intermittent asthma without complication J45. 20 Active confirmed 163668185 Problem Essential 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 tr imester O10.011 Active confirmed 03823398 Problem Excessive or frequent menstruation 626.2 Activ e confirmed 138863973 Problem Supervision of other normal Z34.80 Ac tive confirm 794246533 Problem Essential hypertension I10 Active confirmed 30388258 Problem Essential hypertension affecting in third tr imester O10.013 Active confirmed Problem Other obesity due to excess calories E66.09 Act ugo confirmed 041913913 Problem Body mass index [BMI] 37.0-37.9, adult Z68.37 A ctive confirmed 318549123 ALLERGIES Allergen (clinical drug ingredient) Drug/Non Drug Allergy do cumented on EMR Reaction Allergy Type Onset Date Status Cefzil Rash, itching Drug Allergy Active vancomycin Vancomycin HCl(NDC Code:[address]-71) Rash itching Drug A llergy Active amoxicillin / clavulanate Augmentin(NDC Code:[address]-03) unsure Drug Allergy Active Pediazole Rash,itching Drug Allergy Active ibuprofen Ibuprofen(NDC Code:[address]-76) Rash, itching Drug Aller gy Active ENCOUNTERS from 1995 to 2021-05-03 Encounter Location Date Provider Diagnosis [facility] [address] [facility] [phone] [place] [address] Mar, Mary Gregg Brower hypertensi on affecting in first trimester O10.011 and 8 weeks gestation of Z3A.08 IMMUNIZATIONS Vaccine Route Administration Date Status Meningococcal (VFC) IM Feb 09, 2013 Administered TDAP VFC 0.5mL Boostrix IM Feb 09, 2013 Administ ered SOCIAL HISTORY Tobacco Use: Social History Observation Description Date Details (start date - stop date) Never Smoker Sex Assigned At : Social History Observation Description Sex Assigned At Unknown Education: Question Answer Notes Level of Education: Not Finished College Christianity: Question Answer Notes Christianity No sikh beliefs that would impact health care. Alcohol Screening: Question Answer Notes Did you have a drink containing alcohol in the past year? No Points 0 Interpretation Negative Tobacco Use: Question Answer Notes Are you a: never smoker REASON FOR REFERRAL No Information VITAL SIGNS Weight 228.2 lbs Mar, Height 64 in Mar, BMI 39.17 kg/m2 Mar, Blood pressure systolic 144 mm Hg Mar, Blood pressure diastolic 76 mm Hg Mar, MEDICATIONS Medication SIG (Take, Route, Frequency, Duration) Notes Start Da te End Date Status Previfem 0.25-35 MG-MCG 1 tablet Orally Once a day for 84 day(s) Apr, Not-Taking Adult Gummy/DHA/FA 0.4-25 MG as directed Orally Active Zoloft 50 MG 1 tablet Orally Once a day Not-Taking Ventolin HFA 108 (90 Base) MCG/ACT 2 puffs as needed I nhalation every 6 hrs for 30 Days Not-Taking Albuterol Sulfate HFA 108 (90 Base) MCG/ACT 2 puffs Inhalation Q4hprn Active PROCEDURES No Information RESULTS No Results REASON FOR VISIT 1ST PN MEDICAL (GENERAL) HISTORY Type Description Date Medical History Asthma Medical History [facility]. Surgical History teeth removed at age 4 Hospitalization History [facility] for Staff infection 4 day stay 2 010 Hospitalization History [facility] child x4 Goals Section No Information Health Concerns No Information MEDICAL EQUIPMENT No Information MENTAL STATUS No Information FUNCTIONAL STATUS No Information ASSESSMENTS Encounter Date Diagnosis Assessment Notes Treatment Notes Treatm ent Clinical Notes Mar, Essential hypertension affec ting in first trimester (ICD- 10 - O10.011) Mar, 8 weeks gestation of (ICD-10 - Z3A.08) PLAN OF TREATMENT Pending Tests Test Name Order Date HIV 1and2 ANTIBODY SCREEN 2021-04-12 SYPHILIS (RPR SCREEN) 2021-04-12 CBC - Complete Blood Count 2021-04-12 RUBELLA IMMUNE STATUS IgG 2021-04-12 URINE CULTURE 2021-04-12 CHLAMYDIA and GC DNA AMPLIFICAT 2021-04-12 HEPATITIS C ANTIBODY INDEX 2021-04-12 HBSAG 2021-04-12 Type and Screen Prenatal1 2021-04-12 Pre Eclampsia Profile 2021-04-12 CREATININE,RANDOM URINE 2021-04-12 TOTAL PROTEIN,RANDOM URINE 2021-04-12 Next Appt Details 4 Weeks Reason:COB Provider Name:Maye Chowdary, 2021-04-23 7 02:00:00 PM, [address] [facility], , [place], [address], Follow Up:4 WeeksCOB Insurance Providers Payer Name Payer Address Payer Phone Insured Name Patient Relati onship to Insured Coverage Start Date Coverage End Date [facility] [address] [facility] [id number] SONIA HERNANDEZ
--- OUTSIDE RECORDS SUMMARY | 2021-05-09 10:02 | CCD ---
Author Organization Unknown Address [address] [place] [address] Phone [phone] Care Team Providers Care Teletray Operator Name Role Phone 238 Covid Vaccine Nurse Unavailable Unavailable Allergies None recorded. Medications None recorded. Problems None recorded. Procedures None recorded. Results Lab Results None recorded. Past Encounters 03/13/2021 SARS-CoV-2 Vaccination TIGRE Escobar: [address] [place] [address], Ph. 02/20/2021 SARS-CoV-2 Vaccination TIGRE Escobar: [address] [place] [address], Ph. Social History None recorded. Vaccine List Vaccine Type COVID-19, mRNA, LNP-S, PF, 30 mcg/0.3 mL dose .3 mL 10.3 mL Plan of Care Reminders Provider Appointments None recorded. Lab None recorded. Referral None recorded. Procedures None recorded. Surgeries None recorded. Imaging None recorded. Vitals None recorded.
--- OUTSIDE RECORDS SUMMARY | 2021-05-09 10:02 | CCD ---
Author Organization Unknown Address [address] [place] [address] Phone [phone] Care Team Providers Care Billet Heater Name Role Phone 238 Covid Vaccine Nurse Unavailable Unavailable Allergies None recorded. Medications None recorded. Problems None recorded. Procedures None recorded. Results Lab Results None recorded. Past Encounters 02/20/2021 SARS-CoV-2 Vaccination JEANNETTE EscobarC: [address] [place] [address], Ph. Social History None recorded. Vaccine List None recorded. Plan of Care Reminders Provider Appointments None recorded. Lab None recorded. Referral None recorded. Procedures None recorded. Surgeries None recorded. Imaging None recorded. Vitals None recorded.
--- OUTSIDE RECORDS SUMMARY | 2021-05-09 10:03 | CCD ---
Author Author [facility] Organization [facility] Address Unknown Phone Unavailable Care Team Providers Care Equipment Maintenance Technician Name Role Phone DYLLAN ZAMORA Unavailable Unavailable DYLLAN ZAMORA Unavailable Unavailable DYLLAN ZAMORA Unavailable Unavailable DYLLAN ZAMORA Unavailable Unavailable DYLLAN ZAMORA Unavailable Unavailable DYLLAN ZAMORA Unavailable Unavailable DYLLAN ZAMORA PA Unavailable Unavailable DYLLAN ZAMORA PA Unavailable Unavailable DYLLAN ZAMORA PA Unavailable Unavailable DYLLAN ZAMORA PA Unavailable Unavailable DYLLAN ZAMORA PA Unavailable Unavailable SERA, DYLLAN PA Unavailable Unavailable SERA, DYLLAN PA Unavailable Unavailable SERA, DYLLAN PA Unavailable Unavailable SERA, DYLLAN PA Unavailable Unavailable SERA, DYLLAN PA Unavailable Unavailable SERA, DYLLAN PA Unavailable Unavailable SERA, DYLLAN PA Unavailable Unavailable SERA, DYLLAN PA Unavailable Unavailable SERA, DYLLAN PA Unavailable Unavailable SERA, DYLLAN PA Unavailable Unavailable SERA, DYLLAN PA Unavailable Unavailable SERA, DYLLAN PA Unavailable Unavailable SERA, DYLLAN PA Unavailable Unavailable SERA, DYLLAN PA Unavailable Unavailable SERA, DYLLAN PA Unavailable Unavailable SERA, DYLLAN PA Unavailable Unavailable SERA, DYLLAN PA Unavailable Unavailable SERA, DYLLAN PA Unavailable Unavailable SERA, DYLLAN PA Unavailable Unavailable SERA, DYLLAN PA Unavailable Unavailable SERA, DYLLAN PA Unavailable Unavailable SERA, DYLLAN PA Unavailable Unavailable SERA, DYLLAN PA Unavailable Unavailable SERA, DYLLAN PA Unavailable Unavailable SERA, DYLLAN PA Unavailable Unavailable RING, K LUCINA PA Unavailable Unavailable RING, K LUCINA PA Unavailable Unavailable RING, K LUCINA PA Unavailable Unavailable RING, K LUCINA PA Unavailable Unavailable RING, K LUCINA PA Unavailable Unavailable RING, K LUCINA PA Unavailable Unavailable RING, K LUCINA PA Unavailable Unavailable RING, K LUCINA PA Unavailable Unavailable RING, K LUCINA PA Unavailable Unavailable RING, K LUCINA PA Unavailable Unavailable RING, K LUCINA PA Unavailable Unavailable RING, K LUCINA PA Unavailable Unavailable RING, K LUCINA PA Unavailable Unavailable RING, K LUCINA PA Unavailable Unavailable RING, K LUCINA PA Unavailable Unavailable RING, K LUCINA PA Unavailable Unavailable RING, K LUCINA PA Unavailable Unavailable RING, K LUCINA PA Unavailable Unavailable RING, K LUCINA PA Unavailable Unavailable RING, K LUCINA PA Unavailable Unavailable RING, K LUCINA PA Unavailable Unavailable Blank, [place] Rosemarie Unavailable Unavailable Blank, [place] Rosemarie Unavailable Unavailable Blank, [place] Rosemarie Unavailable Unavailable Blank, [place] Rosemarie Unavailable Unavailable Blank, [place] Rosemarie Unavailable Unavailable Blank, [place] Rosemarie Unavailable Unavailable Blank, [place] Rosemarie Unavailable Unavailable Blank, [place] Rosemarie Unavailable Unavailable Blank, [place] Rosemarie Unavailable Unavailable Blank, [place] Rosemarie Unavailable Unavailable Blank, [place] Rosemarie Unavailable Unavailable Blank, [place] Rosemarie Unavailable Unavailable Blank, [place] Rosemarie Unavailable Unavailable Re-disclosure Warning The records that you are about to access may contain information from federally-assisted alcohol or drug abuse programs. If such information is present, then the following federally mandated warning applies: This information has been disclosed to you from records protected by federal confidentiality rules (42 CFR part 2). The federal rules prohibit you from making any further disclosure of this information unless further disclosure is expressly permitted by the written consent of the person to whom it pertains or as otherwise permitted by 42 CFR part 2. A general authorization for the release of medical or other information is NOT sufficient for this purpose. The Federal rules restrict any use of the information to criminally investigate or prosecute any alcohol or drug abuse patient.The records that you are about to access may contain highly sensitive health information, the redisclosure of which is protected by Article 27-F of the [facility] Public Health law. If you continue you may have access to information: Regarding HIV / AIDS; Provided by facilities licensed or operated by the [facility] Office of Mental Health; or Provided by the [facility] Office for People With Developmental Disabilities. If such information is present, then the following [facility] mandated warning applies: This information has been disclosed to you from confidential records which are protected by state law. State law prohibits you from making any further disclosure of this information without the specific written consent of the person to whom it pertains, or as otherwise permitted by law. Any unauthorized further disclosure in violation of state law may result in a fine or custodial sentence or both. A general authorization for the release of medical or other information is NOT sufficient authorization for further disc losure. Allergies and Adverse Reactions Type Description Substance Reaction Status Data Source(s ) Allergy to substance Allergy to substance Allergy to substance HANK ([facility]) Allergy to substance Allergy to substance Allergy to substance HANK ([facility]) Family History Family Member Name Family Member Gender Family Member Status Date o f Status Description Data Source(s) Unknown Unknown Problem MEDENT ([facility]) Encounters Encounter Providers Location Date Indications Data Source(s ) ( ESTOB) [facility] [address] [place] [address] 04/12/2021 12:00:00 AM EDT eCW1 ([facility]) Outpatient Attender: DYLLAN Das ry 03/21/2021 09:00:00 AM EDT MEDENT [facility] ALMA Escobar-C: [address] [place] [address], Ph. Attender: Rosemarie Blank [facility] Medical 03/13/2021 12:00:00 AM EDT HANK ([facility]) JEANNETTE EscobarC: [address] [place] [address], Ph. Attender: Rosemarie Blank [facility] Medical 02/20/2021 12:00:00 AM EDT HANK ([facility]) JEANNETTE EscobarC: [address] [place] [address], Ph. Attender: Rosemarie Blank [facility] Medical 02/20/2021 12:00:00 AM EDT HANK ([facility]) Outpatient Attender: DYLLAN Das ry 11/15/2020 09:40:00 AM EDT MEDENT ([facility]) Outpatient Attender: LUCINA Correa Primary 10/09/2020 01:15:00 PM EDT MEDENT ([facility]) [place] [address] [facility] [place] [address] 08/08/2020 12:00:00 AM EST eCW1 ([facility]) Unknown [address] [facility] [place] [address] 07/26/2020 12:00:00 AM EST eCW1 ([facility]) Outpatient [address] [facility] [place] [address] 06/29/2020 12:00:00 AM EST eCW1 ([facility]) [place] [address] [facility] [place] [address] 05/01/2020 12:00:00 AM EST eCW1 ([facility]) Immunizations Vaccine Date Status Description Data Source(s) COVID-19, mRNA, LNP-S, PF, 30 mcg/0.3 mL dose 03/13/2021 04: 14:07 PM EDT completed .3 mL HANK ([facility]) COVID-19 VACCINE Pfizer 03/13/2021 12:00:00 AM EDT completed [facility] Vaccine Series Complete: YESThis Data wa s Submitted to [facility] Via [facility]. COVID-19, mRNA, LNP-S, PF, 30 mcg/0.3 mL dose 02/23/2021 08: 28:00 AM EDT completed .3 mL HANK ([facility]) COVID-19 VACCINE Pfizer 02/23/2021 12:00:00 AM EDT completed [facility] Vaccine Series Complete: NOThis Data was Submitted to [facility]. Medications Medication Brand Name Start Date Product Form Dose Route Admi nistrative Instructions Pharmacy Instructions Status Indications Reaction Description Data Source(s) 0.25-35 mg-mcg 07/18/2020 12:00:00 AM EST tablet 84 TAKE ONE TABLET BY MOUTH EVERY DAY TAKE ONE TABLET BY MOUTH EVERY DAY SOLD: 12/07/2020 [facility] 0.25-35 mg-mcg 07/18/2020 12:00:00 AM EST tablet 84 TAKE ONE TABLET BY MOUTH EVERY DAY TAKE ONE TABLET BY MOUTH EVERY DAY SOLD: 07/21/2020 [facility] 50 mcg/actuation 06/04/2020 12:00:00 AM EST spray,suspension 16 SPRAY 1 SPRAY IN EACH NOSTRIL ONCE DAILY SPRAY 1 SPRAY IN EACH NOSTRIL ONCE DAILY SOLD: 06/06/2020 [facility] 20 mg 06/04/2020 12:00:00 AM EST tablet 10 TAKE ONE TABLET BY MOUTH TWICE A DAY FOR 5 DAYS TAKE ONE TABLET BY MOUTH TWICE A DAY FOR 5 DAYS SOLD: 2019 [facility] 90 mcg/actuation 06/04/2020 12:00:00 AM EST HFA aerosol inha ler 8 INHALE ONE TO TWO PUFFS BY MOUTH EVERY 4 HOURS NEEDED FOR WHEEZING INHALE ONE TO TWO PUFFS BY MOUTH EVERY 4 HOURS NEEDED FOR WHEEZING SOLD: 06/06/2020 [facility] 0.25-35 mg-mcg 05/01/2020 12:00:00 AM EST tablet 84 TAKE ONE TABLET BY MOUTH EVERY DAY TAKE ONE TABLET BY MOUTH EVERY DAY SOLD: 05/02/2020 [facility] Previfem 0.25-35 MG-MCG Previfem 0.25-35 MG-MCG 05/01/2020 12:00:00 AM EST 1.0 {tablet} active Previfem 0.25-35 MG-MCG eCW1 ([facility]) Previfem 0.25-35 MG-MCG Previfem 0.25-35 MG-MCG 05/01/2020 12:00:00 AM EST 1.0 {tablet} suspended Previfem 0.25-35 MG-M CG eCW1 ([facility]) Previfem 0.25-35 MG-MCG Previfem 0.25-35 MG-MCG 05/01/2020 12:00:00 AM EST 1.0 {tablet} active Previfem 0.25-35 MG-MCG eCW1 ([facility]) Previfem 0.25-35 MG-MCG Previfem 0.25-35 MG-MCG 05/01/2020 12:00:00 AM EST 1.0 {tablet} active Previfem 0.25-35 MG-MCG eCW1 ([facility]) Previfem 0.25-35 MG-MCG Previfem 0.25-35 MG-MCG 05/01/2020 12:00:00 AM EST 1.0 {tablet} active Previfem 0.25-35 MG-MCG eCW1 ([facility]) 50 mg 02/17/2020 12:00:00 AM EDT tablet 30 TAKE ONE TABLET BY MOUTH EVERY DAY TAKE ONE TABLET BY MOUTH EVERY DAY SOLD: 03/17/2020 [facility] 50 mg 02/17/2020 12:00:00 AM EDT tablet 30 TAKE ONE TABLET BY MOUTH EVERY DAY TAKE ONE TABLET BY MOUTH EVERY DAY SOLD: 09/12/2020 [facility] 50 mg 02/17/2020 12:00:00 AM EDT tablet 30 TAKE ONE TABLET BY MOUTH EVERY DAY TAKE ONE TABLET BY MOUTH EVERY DAY SOLD: 05/16/2020 [facility] 0.25-35 mg-mcg 02/02/2020 12:00:00 AM EDT tablet 28 TAKE ONE TABLET BY MOUTH EVERY DAY TAKE ONE TABLET BY MOUTH EVERY DAY SOLD: 04/01/2020 [facility] Insurance Providers Payer name Policy type / Coverage type Policy ID Covered democrat ID Covered democrat's relationship to waltesr Policy Walters Plan Information [id number] [facility] [id number] MEDICAID [id number] SP [id number] MEDICAID [id number] SP [id number] MEDICAID [id number] SP [id number] MEDICAID [id number] SP [id number] MEDICAID [id number] SP [id number] LIFETIME BENEFIT SOLUTIONS [id number] MO2 [id number] LIFETIME BENEFIT SOLUTIO O [id number] S [id number] [facility] [id number] [id number] BCBS [place]IRE [place] [id number] [facility] [id number] [facility] [id number] Lifetime Benefits [employer] [employer] Maintenance Organization (HMO) 10 [id number] Family Dependent [id number] [facility] [id number] WI2 [id number] LIFETIME BENEFIT SOLUTIONS [id number] MO2 [id number] LIFETIME BENEFIT SOLUTIONS [id number] MO2 [id number] LIFETIME BENEFIT SOLUTIONS [id number] SP [id number] [employer] CLAIMS [id number] MO2 [id number] [facility] BCBS P [id number] S [id number] Medicaid [place] Medigap Part B [id number] Self [id number] [facility] [id number] 2 [id number] BCBS EMPIRE JOE DIV [id number] [id number] EMPIRE ([facility]) O [id number] S [id number] [facility] [id number] SPO [id number] BCBS EMPIRE [id number] SPO [id number] [employer]BS B [id number] S [id number] MEDICAID M [id number] S [id number] Problems, Conditions, and Diagnoses Code Display Name Description Problem Type Effective Dates Data Source(s) O10.011 [id number] Essential 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 trimester Problem 04/12/2021 12:00:00 AM EDT eCW1 ([facility]) Z34.80 care Supervision of other normal P roblem 04/06/2021 12:00:00 AM EDT eCW1 ([facility]) Z68.37 [id number] Body mass index [BMI] 37.0-37.9, adult Pr oblem 06/29/2020 12:00:00 AM EST eCW1 ([facility]) E66.09 [id number] Other obesity due to excess calories Prob verena 06/29/2020 12:00:00 AM EST eCW1 ([facility]) Surgeries/Procedures Procedure Description Date Indications Data Source(s) OFFICE OUTPATIENT VISIT 15 MINUTES 03/21/2021 12:00:00 AM EDT MEDENT ([facility]) OFFICE OUTPATIENT VISIT 25 MINUTES 11/15/2020 12:00:00 AM EDT MEDENT ([facility], [facility]) OFFICE OUTPATIENT NEW 30 MINUTES 10/09/2020 12:00:00 A M EDT MEDENT ([facility], [facility]) Medication: Tuberculin Purified Protein 0.1mL Intradermal (P PD) 08/08/2020 12:00:00 AM EST eCW1 ([facility]) Results ID Date Data Source [id number] 03/21/2021 12:00:00 AM EDT [facility] Name Value Range Interpretation Code Description Data Daisy rce(s) Supporting Document(s) SARS-CoV2 Rapid Antigen Negative [facility] This lab was reported by [facility]. ID Date Data Source [id number] 06/04/2020 12:00:00 AM EST [facility] Name Value Range Interpretation Code Description Data Daisy rce(s) Supporting Document(s) SARS coronavirus 2 RNA [Presence] in Res piratory specimen by DRU with probe detection [facility] This lab was ordered by [facility] and reported by [facility]. Procedure Social History Code Duration Value Status Description Data Source(s ) Smoking 04/12/2021 12:00:00 AM EDT Never Smoker completed Never S moker eCW1 ([facility]) Smoking 11/15/2020 12:00:00 AM EDT Patient has never smoked co mpleted Patient has never smoked MEDENT ([facility]) Smoking 08/08/2020 12:00:00 AM EST Never Smoker completed Never S moker eCW1 ([facility]) Smoking 06/29/2020 12:00:00 AM EST Never Smoker completed Never S moker eCW1 ([facility]) Smoking 06/29/2020 12:00:00 AM EST Never Smoker completed Never S moker eCW1 ([facility]) Vital Signs ID Date Data Source UNK Name Value Range Interpretation Code Description Data Source(s) Body weight 228.2 [lb_av] 228.2 [lb_av] W[facility] ([facility] Body height 64 [in_i] 64 [in_i] W1 ([facility]) Body mass index (BMI) [Ratio] 39.17 kg/m2 39.17 kg/m2 [facility] ([facility]) Systolic blood pressure 144 mm[Hg] 144 mm[Hg] e CW1 ([facility]) Diastolic blood pressure 76 mm[Hg] 76 mm[Hg] [facility] ([facility]) Systolic blood pressure 130 mm[Hg] 130 mm[Hg] M EDENT ([facility]) Diastolic blood pressure 81 mm[Hg] 81 mm[Hg] MEDENT ([facility]) Heart rate 82 /min 82 /min MEDENT ([facility], [facility]) Respiratory rate 20 /min 20 /min MEDENT ( [facility], [facility]) Body weight 200.00 [lb_av] 200.00 [lb_av] MEDEN T ([facility], [facility]) Body mass index (BMI) [Ratio] 34.3 kg/m2 34.3 k g/m2 MEDENT ([facility], [facility]) Oxygen saturation in Arterial blood by Pulse oximetry 100 % 100 % MEDENT ([facility], [facility]) Body height 64 [in_i] 64 [in_i] MEDENT ([facility], [facility]) 5'4" Body temperature 98.3 [degF] 98.3 [degF] MEDENT ([facility], [facility]) Heart rate 91 /min 91 /min MEDENT ([facility], [facility]) Respiratory rate 12 /min 12 /min MEDENT ( [facility], [facility]) Oxygen saturation in Arterial blood by Pulse oximetry 96 % 96 % MEDENT ([facility], [facility]) Body temperature 96.2 [degF] 96.2 [degF] MEDENT ([facility], [facility]) Body weight 214.00 [lb_av] 214.00 [lb_av] MEDEN T ([facility], [facility]) Diastolic blood pressure 88 mm[Hg] 88 mm[Hg] MEDENT ([facility], [facility]) Body height 64 [in_i] 64 [in_i] MEDENT ([facility], [facility]) 5'4" Systolic blood pressure 121 mm[Hg] 121 mm[Hg] M EDENT ([facility], [facility]) Body mass index (BMI) [Ratio] 36.7 kg/m2 36.7 k g/m2 MEDENT ([facility], [facility]) Systolic blood pressure 127 mm[Hg] 127 mm[Hg] M EDENT ([facility], [facility]) Diastolic blood pressure 87 mm[Hg] 87 mm[Hg] MEDENT ([facility], [facility]) Heart rate 84 /min 84 /min MEDENT ([facility], [facility]) Respiratory rate 16 /min 16 /min MEDENT ( [facility], [facility]) Oxygen saturation in Arterial blood by Pulse oximetry 100 % 100 % MEDENT ([facility], [facility]) Body temperature 97.8 [degF] 97.8 [degF] MEDENT ([facility], [facility]) Body weight 214.00 [lb_av] 214.00 [lb_av] MEDEN T ([facility], [facility]) Body height 64 [in_i] 64 [in_i] MEDENT ([facility]) 5'4" Body mass index (BMI) [Ratio] 36.7 kg/m2 36.7 k g/m2 MEDENT ([facility], [facility]) Body weight [lb_av] eCW1 ([facility]) Body height 64 [in_i] 64 [in_i] eCW1 ([facility]) Body mass index (BMI) [Ratio] 37.76 kg/m2 37.76 kg/m2 W1 ([facility]) Heart rate 84 /min 84 /min eCW1 ([facility]) Respiratory rate 16 /min 16 /min eCW1 ([facility]) Body temperature 97.2 [degF] 97.2 [degF] eCW1 ( [facility]) Systolic blood pressure 132 mm[Hg] 132 mm[Hg] e CW1 ([facility]) Diastolic blood pressure 84 mm[Hg] 84 mm[Hg] eCW1 ([facility]) Body weight 219.0 [lb_av] 219.0 [lb_av] eCW1 ([facility]) Body height 64 [in_i] 64 [in_i] eCW1 ([facility]) Body mass index (BMI) [Ratio] 37.59 kg/m2 37.59 kg/m2 W1 ([facility]) Systolic blood pressure 118 mm[Hg] 118 mm[Hg] e CW1 ([facility]) Diastolic blood pressure 74 mm[Hg] 74 mm[Hg] eCW1 ([facility]) Patient Treatment Plan of Care Planned Activity Planned Date Details Description Data Source (s) Previfem 0.25-35 MG-MCG 05/01/2020 12:00:00 AM EST eCW1 ([facility]) Previfem 0.25-35 MG-MCG 05/01/2020 12:00:00 AM EST eCW1 ([facility]) Previfem 0.25-35 MG-MCG 05/01/2020 12:00:00 AM EST eCW1 ([facility])
--- OUTSIDE RECORDS SUMMARY | 2021-05-09 12:25 | CCD ---
Author Author [facility] Organization [facility] Address Unknown Phone Unavailable Care Team Providers Care Clay Digger Name Role Phone DYLLAN ZAMORA Unavailable Unavailable DYLLAN ZAMORA Unavailable Unavailable DYLLAN ZAMORA Unavailable Unavailable DYLLAN ZAMORA Unavailable Unavailable DYLLAN ZAMORA Unavailable Unavailable DYLLAN ZAMORA Unavailable Unavailable DYLLAN ZAMORA Unavailable Unavailable DYLLAN ZAMORA Unavailable Unavailable SERA, DYLLAN PA Unavailable Unavailable [...] Unavailable Unavailable SERA, DYLLAN PA Unavailable Unavailable SREA, DYLLAN PA Unavailable Unavailable RING, K LUCINA [...] RING, K LUCINA PA Unavailable Unavailable Blank, Camden Rosemarie Unavailable Unavailable Blank, Camden Rosemarie Unavailable Unavailable Blank, Camden Rosemarie Unavailable Unavailable Blank, Camden Rosemarie Unavailable Unavailable Blank, Camden Rosemarie Unavailable Unavailable Blank, Camden Rosemarie Unavailable Unavailable Blank, Camden Rosemarie Unavailable Unavailable Blank, Camden Rosemarie Unavailable Unavailable Blank, Camden Roesmarie Unavailable Unavailable Blank, Camden Rosemarie Unavailable Unavailable Blank, Camden Rosemarie Unavailable Unavailable Blank, Camden Rosemarie Unavailable Unavailable Blank, Camden Rosemarie Unavailable Unavailable Re-disclosure Warning The records [...] is protected by Article 27-F of the [facility] Public Health law. If you continue you may have access to information: Regarding HIV / AIDS; Provided by facilities licensed or operated by the [facility] Office of Mental Health; or Provided by the [facility] Office for People With Developmental Disabilities. If such information is present, then the following [facility] mandated warning applies: This information has been [...] law may result in a fine or nursing home sentence or both. A general authorization for the release of medical or other information is NOT sufficient authorization for further disc losure. Allergies and Adverse Reactions Type Description Substance Reaction Status Data Source(s ) Allergy to substance Allergy to substance Allergy to substance HANK ([facility]) Allergy to substance Allergy to substance Allergy to substance HANK ([facility]) Family History Family Member Name Family Member Gender Family Member Status Date o f Status Description Data Source(s) Unknown Unknown Problem MEDENT ([facility]) Encounters Encounter Providers Location Date Indications Data Source(s ) ( ESTOB) [facility] Est OB [address] [place] [address] 04/12/2021 12:00:00 AM EDT eCW1 ([facility]) Outpatient Attender: DYLLAN Das ry 03/21/2021 09:00:00 AM EDT MEDENT ([facility]) JEANNETET EscobarC: [address] [place], [place] [phone], Ph. Attender: Rosemarie Blank [facility] Medical 03/13/2021 12:00:00 AM EDT HANK ([facility]) JEANNETTE EscobarC: [address] [place] [address], Ph. Attender: Rosemarie Blank [facility] Medical 02/20/2021 12:00:00 AM EDT HANK ([facility]) JEANNETTE EscobarC: [address] [place] [address], Ph. Attender: Rosemarie Blank [facility] Medical 02/20/2021 12:00:00 AM EDT HANK ([facility]) Outpatient Attender: DYLLAN Das ry 11/15/2020 09:40:00 AM EDT MEDENT ([facility]) Outpatient Attender: LUCINA Correa Primary 10/09/2020 01:15:00 PM EDT MEDENT ([facility]) Outpatient [address] [facility] [address] 08/08/2020 12:00:00 AM EST eCW1 ([facility]) Unknown [address] [facility] [address] 07/26/2020 12:00:00 AM EST eCW1 ([facility]) Outpatient [address] [address] 06/29/2020 12:00:00 AM EST eCW1 ([facility]) [place] [address] [address] 05/01/2020 12:00:00 AM EST eCW1 ([facility]) Immunizations Vaccine Date Status Description Data Source(s) COVID-19, mRNA, LNP-S, PF, 30 mcg/0.3 mL dose 03/13/2021 04: 14:07 PM EDT completed .3 mL HANK ([facility]) COVID-19 VACCINE Pfizer 03/13/2021 12:00:00 AM EDT completed [facility] Vaccine Series Complete: YESThis Data wa s Submitted to [facility] Via [email or web address]. COVID-19, mRNA, LNP-S, PF, 30 mcg/0.3 mL dose 02/23/2021 08: 28:00 AM EDT completed .3 mL HANK ([facility]) COVID-19 VACCINE Pfizer 02/23/2021 12:00:00 AM EDT completed [facility] Vaccine Series Complete: NOThis Data was Submitted to [facility] Via [email or web address]. Medications Medication Brand Name Start Date Product [...] 1.0 {tablet} active Previfem 0.25-35 MG-MCG eCW1 ([facility]) Previfem 0.25-35 MG-MCG Previfem 0.25-35 MG-MCG 05/01/2020 12:00:00 AM EST 1.0 {tablet} suspended Previfem 0.25-35 MG-M CG eCW1 ([facility]) Previfem 0.25-35 MG-MCG Previfem 0.25-35 MG-MCG 05/01/2020 12:00:00 AM EST 1.0 {tablet} active Previfem 0.25-35 MG-MCG eCW1 ([facility]) Previfem 0.25-35 MG-MCG Previfem 0.25-35 MG-MCG 05/01/2020 12:00:00 AM EST 1.0 {tablet} active Previfem 0.25-35 MG-MCG eCW1 ([facility]) Previfem 0.25-35 MG-MCG Previfem 0.25-35 MG-MCG 05/01/2020 12:00:00 AM EST 1.0 {tablet} active Previfem 0.25-35 MG-MCG eCW1 ([facility]) 50 mg 02/17/2020 12:00:00 AM EDT [...] TABLET BY MOUTH EVERY DAY SOLD: 05/16/2020 [facility] 0.25-35 mg-mcg 02/02/2020 12:00:00 AM EDT tablet 28 TAKE ONE TABLET BY MOUTH EVERY DAY TAKE ONE TABLET BY MOUTH EVERY DAY SOLD: 04/01/2020 [facility] Insurance Providers Payer name Policy type / Coverage type Policy ID Covered republican ID Covered republican's relationship to walters Policy Walters Plan Information [id number] O BLUE [id number] MO2 [id number] MEDICAID [id number] SP [id number] MEDICAID [id number] SP [id number] MEDICAID [id number] SP [id number] MEDICAID [id number] SP [id number] MEDICAID [id number] SP [id number] LIFETIME BENEFIT SOLUTIONS [id number] MO2 [id number] LIFETIME BENEFIT SOLUTIO O [id number] S [id number] [facility] [id number] WI2 [id number] [facility] [id number] [facility] [id number] [facility] [id number] SPO [id number] Lifetime Benefits [facility] [employer] (HMO) 10 [id number] Family Dependent [id number] [facility] [id number] WI2 [id number] [employer] [id number] MO2 [id number] [employer] BENEFIT SOLUTIONS [id number] MO2 [id number] LIF[employer]IME BENEFIT SOLUTIONS [id number] SP [id number] [employer] CLAIMS [id number] MO2 [id number] [facility] BCBS P [id number] S [id number] Medicaid [place] Medigap Part B [id number] Self [id number] [facility] [id number] BCBS EMPIRE JOE DIV [id number] EMPIRE (STATE EMP) O [id number] S [id number] [facility] [id number] SPO [id number] BCBS EMPIRE [id number] SPO [id number] [employer] BCBS B [id number] S [id number] MEDICAID M [id number] S [id number] Problems, Conditions, and Diagnoses Code Display Name Description Problem Type Effective Dates Data Source(s) O10.011 [id number] Essential 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 trimester Problem 04/12/2021 12:00:00 AM EDT eCW1 ([facility]) Z34.80 care Supervision of other normal P gilbertom 04/06/2021 12:00:00 AM EDT eCW1 ([facility]) Z68.37 [id number] Body mass index [BMI] 37.0-37.9, adult Pr oblem 06/29/2020 12:00:00 AM EST eCW1 ([facility]) E66.09 [id number] Other obesity due to excess calories Prob verena 06/29/2020 12:00:00 AM EST eCW1 ([facility]) Surgeries/Procedures Procedure Description Date Indications Data Source(s) OFFICE OUTPATIENT VISIT 15 MINUTES 03/21/2021 12:00:00 AM EDT MEDENT ([facility], [facility]) OFFICE OUTPATIENT VISIT 25 MINUTES 11/15/2020 12:00:00 AM EDT MEDENT ([facility], [facility]) OFFICE OUTPATIENT NEW 30 MINUTES 10/09/2020 12:00:00 A M EDT MEDENT ([facility], [facility]) Medication: Tuberculin Purified Protein 0.1mL Intradermal (P PD) 08/08/2020 12:00:00 AM EST eCW1 ([facility]) Results ID Date Data Source [id number] 03/21/2021 12:00:00 AM EDT [facility] Name Value Range Interpretation Code Description Data Daisy rce(s) Supporting Document(s) SARS-CoV2 Rapid Antigen Negative [facility]. ID Date Data Source [id number] 06/04/2020 12:00:00 AM EST [facility] Name Value Range Interpretation Code Description Data Daisy rce(s) Supporting Document(s) SARS coronavirus 2 RNA [Presence] in Res piratory specimen by DRU with probe detection [facility] This lab was ordered by [facility] and reported by [facility]. Procedure Social History Code Duration Value Status Description Data Source(s ) Smoking 04/12/2021 12:00:00 AM EDT Never Smoker completed Never S moker eCW1 ([facility]) Smoking 11/15/2020 12:00:00 AM EDT Patient has never smoked co mpleted Patient has never smoked MEDENT ([facility]) Smoking 08/08/2020 12:00:00 AM EST Never Smoker completed Never S moker eCW1 ([facility]) Smoking 06/29/2020 12:00:00 AM EST Never Smoker completed Never S moker eCW1 ([facility]) Smoking 06/29/2020 12:00:00 AM EST Never Smoker completed Never S moker eCW1 ([facility]) Vital Signs ID Date Data Source UNK Name Value Range Interpretation Code Description Data Source(s) Body height 64 [in_i] 64 [in_i] eCW1 ([facility]) Systolic blood pressure 144 mm[Hg] 144 mm[Hg] e CW1 ([facility]) Body mass index (BMI) [Ratio] 39.17 kg/m2 39.17 kg/m2 eCW1 ([facility]) Body weight 228.2 [lb_av] 228.2 [lb_av] eCW1 ([facility] includes the [facility]) Diastolic blood pressure 76 mm[Hg] 76 mm[Hg] eCW1 ([facility]) Systolic blood pressure 130 mm[Hg] 130 mm[Hg] M EDENT ([facility]) Respiratory rate 20 /min 20 /min MEDENT ( [facility], [facility]) Diastolic blood pressure 81 mm[Hg] 81 mm[Hg] MEDENT ([facility], [facility]) Heart rate 82 /min 82 /min MEDENT ([facility], [facility]) Body weight 200.00 [lb_av] 200.00 [lb_av] MEDEN T ([facility], [facility]) Body mass index (BMI) [Ratio] 34.3 kg/m2 34.3 k g/m2 MEDENT ([facility], [facility]) Oxygen saturation in Arterial blood by Pulse oximetry 100 % 100 % MEDENT ([facility], [facility]) Body height 64 [in_i] 64 [in_i] MEDENT ([facility], [facility]) 5'4" Body temperature 98.3 [degF] 98.3 [degF] MEDENT ([facility], [facility]) Respiratory rate 12 /min 12 /min MEDENT ( [facility], [facility]) Heart rate 91 /min 91 /min [facility], [facility]) Oxygen saturation in Arterial blood by Pulse oximetry 96 % 96 % MEDENT ([facility], [facility]) Body temperature 96.2 [degF] 96.2 [degF] MEDENT ([facility], [facility]) Body weight 214.00 [lb_av] 214.00 [lb_av] MEDEN T ([facility], [facility]) Body height 64 [in_i] 64 [in_i] MEDENT ([facility], [facility]) 5'4" Diastolic blood pressure 88 mm[Hg] 88 mm[Hg] MEDENT ([facility], [facility]) Systolic blood pressure 121 mm[Hg] 121 mm[Hg] M EDENT ([facility], [facility]) Body mass index (BMI) [Ratio] 36.7 kg/m2 36.7 k g/m2 MEDENT ([facility], [facility]) Body mass index (BMI) [Ratio] 36.7 kg/m2 36.7 k g/m2 MEDENT ([facility], [facility]) Systolic blood pressure 127 mm[Hg] 127 mm[Hg] M EDENT ([facility], [facility]) Diastolic blood pressure 87 mm[Hg] 87 mm[Hg] MEDENT ([facility], [facility]) Heart rate 84 /min 84 /min MEDENT ([facility], [facility]) Respiratory rate 16 /min 16 /min MEDENT ( [facility], [facility]) Oxygen saturation in Arterial blood by Pulse oximetry 100 % 100 % MEDENT ([facility], [facility]) Body temperature 97.8 [degF] 97.8 [degF] MEDENT ([facility], [facility]) Body weight 214.00 [lb_av] 214.00 [lb_av] MEDEN T ([facility], [facility]) Body height 64 [in_i] 64 [in_i] MEDENT ([facility], [facility]) 5'4" Body weight [lb_av] eCW1 ([facility]) Body height 64 [in_i] 64 [in_i] eCW1 ([facility]) Body mass index (BMI) [Ratio] 37.76 kg/m2 37.76 kg/m2 W1 ([facility]) Heart rate 84 /min 84 /min eCW1 ([facility]) Respiratory rate 16 /min 16 /min eCW1 ([facility]) Body temperature 97.2 [degF] 97.2 [degF] eCW1 ( [facility]) Systolic blood pressure 132 mm[Hg] 132 mm[Hg] e CW1 ([facility]) Diastolic blood pressure 84 mm[Hg] 84 mm[Hg] eCW1 ([facility]) Body mass index (BMI) [Ratio] 37.59 kg/m2 37.59 kg/m2 W1 ([facility]) Body height 64 [in_i] 64 [in_i] eCW1 ([facility]) Body weight 219.0 [lb_av] 219.0 [lb_av] eCW1 (Count includes the [facility]) Systolic blood pressure 118 mm[Hg] 118 mm[Hg] e CW1 ([facility]) Diastolic blood pressure 74 mm[Hg] 74 mm[Hg] eCW1 ([facility]) Patient Treatment Plan of Care Planned Activity Planned Date Details Description Data Source (s) Previfem 0.25-35 MG-MCG 05/01/2020 12:00:00 AM EST eCW1 ([facility]) Previfem 0.25-35 MG-MCG 05/01/2020 12:00:00 AM EST eCW1 ([facility]) Previfem 0.25-35 MG-MCG 05/01/2020 12:00:00 AM EST eCW1 ([facility])
--- NOTE | 2021-05-09 14:17 | REP ---
INDICATION: trauma, vomiting, blurred vision since COMPARISON: None. TECHNIQUE: Axial noncontrast images from the skull base to the vertex with coronal reformations. This CT examination was performed using the following dose reduction techniques: Automated exposure control, adjustment of mA and/or kv according to the patient's size, and use of iterative reconstruction technique. FINDINGS: The ventricles, sulci, and cisterns are normal in position and appearance. Chacon-white differentiation is maintained. No acute intracranial hemorrhage, mass/mass effect, pathology or trauma/injury. No evidence for acute infarction. No extra-axial fluid collection. Calvarium is intact. Paranasal sinuses and mastoid air cells are clear. IMPRESSION: Normal noncontrast head CT. No evidence for acute intracranial pathology or trauma/injury. <Electronically signed by Kolby Hobbs > 05/09/21 1627
[2021-05-09 17:29] VITALS: BP 129/76
== END 2021-05-09 17:45 | disposition home or self-care (01) ==
LOC: M ED 09:54
DX: O9A.212 Injury, poisoning and certain other consequences of external causes complicating pregnancy, second trimester (principal); S06.0X0A Concussion without loss of consciousness, initial encounter; W50.0XXA Accidental hit or strike by another person, initial encounter; Y92.89 Other specified places as the place of occurrence of the external cause; Y99.0 Civilian activity done for income or pay; Z3A.20 20 weeks gestation of pregnancy; O98.512 Other viral diseases complicating pregnancy, second trimester; B34.8 Other viral infections of unspecified site; O99.512 Diseases of the respiratory system complicating pregnancy, second trimester; J45.909 Unspecified asthma, uncomplicated; Z79.82 Long term (current) use of aspirin

== ENCOUNTER → 2021-05-15 | Outpatient (CLI) | payer BC, OTHER ==
[~2021-05-15] MED LIST changes: +ECOT81TA5 PO
[2021-05-15 13:50] LABS: BASO % 0.6 % (0.0-1.0); EOS # 0.1 10^3/uL (0.0-0.5); EOS % 2.2 % (0.0-3.0); HEMATOCRIT 37.5 % (36.0-47.0); HEMOGLOBIN 12.1 g/dl (12.0-15.5); LYMPH # 0.9 10^3/uL (1.5-5.0); LYMPH % 17.3 % (24.0-44.0); MEAN CORPUSCULAR HEMOGLOBIN 24.4 pg (27.0-33.0); MEAN CORPUSCULAR HGB CONC 32.3 g/dl (32.0-36.5); MEAN CORPUSCULAR VOLUME 75.8 fl (80.0-96.0); MONO # 0.3 10^3/uL (0.0-0.8); MONO % 5.6 % (2.0-8.0); NEUTROPHILS # 3.7 10^3/uL (1.5-8.5); NEUTROPHILS % 73.9 % (36.0-66.0); PLATELET COUNT, AUTOMATED 166 10^3/uL (150-450); RED BLOOD COUNT 4.95 10^6/uL (4.00-5.40)
[2021-05-15 14:10] LABS: ALT/SGPT 19 U/L (12-78); BILIRUBIN,TOTAL 0.2 MG/DL (0.2-1.0); CREATININE FOR GFR 0.61 MG/DL (0.55-1.30); GLOMERULAR FILTRATION RATE > 60.0 (>60); LDH LACTATE DEHYDROGENASE 153 U/L (84-246); URIC ACID 2.9 MG/DL (2.6-6.0)
[2021-05-15 14:22] LABS: TOTAL PROTEIN,RANDOM URINE 12.4 MG/DL (0.0-12.0)
[2021-05-15 15:14] LABS: HEPATITIS C VIRUS ABY INDEX 0.1 INDEX (<0.8)
[2021-05-15 15:15] LABS: HIV 1&2 SCREEN CENTAUR NEGATIVE (NEGATIVE)
[2021-05-15 15:25] LABS: GC DNA AMPLIFICATION NEGATIVE (NEGATIVE)
== END ==
LOC: M PLALAB 09:19
PROVIDERS: ATTEND Advanced Practice Midwife
DX: O10.011 Pre-existing essential hypertension complicating pregnancy, first trimester (principal); Z3A.00 Weeks of gestation of pregnancy not specified

== ENCOUNTER → 2021-06-13 | Outpatient (REF) | payer BC, OTHER | LOC: M SFHCWAGY 13:06 | PROVIDERS: ATTEND Advanced Practice Midwife | DX: Z36.2 Encounter for other antenatal screening follow-up (principal); O10.012 Pre-existing essential hypertension complicating pregnancy, second trimester; Z3A.00 Weeks of gestation of pregnancy not specified ==

== ENCOUNTER 2021-07-02 18:44 | Outpatient (CLI) | payer BC, OTHER ==
[2021-07-02 19:11] VITALS: BP 116/78
[2021-07-02 19:48] LABS: AMORPHOUS SEDIMENT SMALL (NEGATIVE); APPEARANCE, URINE HAZY (CLEAR); BACTERIA, URINE AUTO NEGATIVE (NEGATIVE); BILIRUBIN, URINE AUTO NEGATIVE (NEGATIVE); BLOOD, URINE BLOOD NEGATIVE (NEGATIVE); COLOR, URINE YELLOW (YELLOW); GLUCOSE, URINE (UA) AUTO NEGATIVE (NEGATIVE); KETONE, URINE AUTO TRACE mg/dL (NEGATIVE); LEUKOCYTE ESTERASE, URINE AUTO 3+ (NEGATIVE); NITRITE, URINE AUTO NEGATIVE (NEGATIVE); PROTEIN, URINE AUTO NEGATIVE (NEGATIVE); RBC, URINE AUTO 2 /HPF (0-3); SPECIFIC GRAVITY URINE AUTO 1.013 (1.002-1.035); SQUAMOUS EPITHELIAL CELL UR AU 4 /HPF (0-6); UROBILINOGEN, URINE AUTO 0.2 mg/dL (0.0-2.0); WBC, URINE AUTO 2 /HPF (0-3)
[2021-07-02 20:21] LABS: BASO % 0.3 % (0.0-1.0); EOS # 0.1 10^3/uL (0.0-0.5); EOS % 0.8 % (0.0-3.0); HEMATOCRIT 34.8 % (36.0-47.0); HEMOGLOBIN 10.9 g/dl (12.0-15.5); LYMPH # 1.3 10^3/uL (1.5-5.0); LYMPH % 17.4 % (24.0-44.0); MEAN CORPUSCULAR HEMOGLOBIN 24.1 pg (27.0-33.0); MEAN CORPUSCULAR HGB CONC 31.3 g/dl (32.0-36.5); MONO # 0.4 10^3/uL (0.0-0.8); MONO % 4.7 % (2.0-8.0); NEUTROPHILS # 5.7 10^3/uL (1.5-8.5); NEUTROPHILS % 76.5 % (36.0-66.0); PLATELET COUNT, AUTOMATED 135 10^3/uL (150-450); RED BLOOD COUNT 4.52 10^6/uL (4.00-5.40); WHITE BLOOD COUNT 7.5 10^3/uL (4.0-10.0)
[2021-07-02] MEDS ORDERED: LR 1,000 ML IV ONE (20:50)
[2021-07-02] MEDS ORDERED: AZTREONAM 1 GM in D5W MINI-BAG PLUS 50 ML IV SCH (21:00)
[2021-07-02 21:06] LABS: ALBUMIN 2.9 GM/DL (3.2-5.2); ALT/SGPT 16 U/L (12-78); BLOOD UREA NITROGEN 7 MG/DL (7-18); CALCIUM LEVEL 8.3 MG/DL (8.5-10.1); CARBON DIOXIDE LEVEL 25 MEQ/L (21-32); CHLORIDE LEVEL 107 MEQ/L (98-107); CREATININE FOR GFR 0.62 MG/DL (0.55-1.30); GLOMERULAR FILTRATION RATE > 60.0 (>60); GLUCOSE, FASTING 79 MG/DL (70-100); POTASSIUM SERUM 4.1 MEQ/L (3.5-5.1); SODIUM LEVEL 138 MEQ/L (136-145); TOTAL PROTEIN 6.3 GM/DL (6.4-8.2)
[2021-07-02 21:52] LABS: BILIRUBIN,TOTAL 0.2 MG/DL (0.2-1.0)
[2021-07-02 22:18] VITALS: BP 117/68
[2021-07-02] MEDS ORDERED: FLUCONAZOLE 50MG TABLET PO ONE (23:00)
[2021-07-03 00:07] LABS: GC DNA AMPLIFICATION NEGATIVE (NEGATIVE)
== END 2021-07-02 22:32 | disposition home or self-care (01) ==
LOC: M LDO 18:44
PROVIDERS: ATTEND Advanced Practice Midwife
DX: O23.42 Unspecified infection of urinary tract in pregnancy, second trimester (principal); O26.892 Other specified pregnancy related conditions, second trimester; N89.8 Other specified noninflammatory disorders of vagina; Z3A.20 20 weeks gestation of pregnancy
CPT/HCPCS: 36415; 59025; 80053; 81001; 85025; 87070; 87077; 87810; 87850; 96365; 96366; G0378; G0463; S0073

== ENCOUNTER → 2021-07-04 | Outpatient (CLI) | payer BC, OTHER | LOC: M WHC 08:35 | PROVIDERS: ATTEND Advanced Practice Midwife | DX: O10.012 Pre-existing essential hypertension complicating pregnancy, second trimester (principal); Z3A.20 20 weeks gestation of pregnancy ==

== ENCOUNTER → 2021-08-29 | Outpatient (CLI) | payer BC, OTHER ==
[~2021-08-29] MED LIST changes: +LABE200T3 PO; -LABE200T32 PO
[2021-08-29 17:26] LABS: HEMATOCRIT 34.2 % (36.0-47.0); HEMOGLOBIN 10.8 g/dl (12.0-15.5); MEAN CORPUSCULAR HEMOGLOBIN 24.1 pg (27.0-33.0); MEAN CORPUSCULAR HGB CONC 31.6 g/dl (32.0-36.5); MEAN CORPUSCULAR VOLUME 76.3 fl (80.0-96.0); PLATELET COUNT, AUTOMATED 165 10^3/uL (150-450); RED BLOOD COUNT 4.48 10^6/uL (4.00-5.40); WHITE BLOOD COUNT 6.9 10^3/uL (4.0-10.0)
[2021-08-29 18:06] LABS: ALBUMIN 2.9 GM/DL (3.2-5.2); ALT/SGPT 14 U/L (12-78); BILIRUBIN,TOTAL 0.2 MG/DL (0.2-1.0); BLOOD UREA NITROGEN 9 MG/DL (7-18); CALCIUM LEVEL 8.7 MG/DL (8.5-10.1); CARBON DIOXIDE LEVEL 24 MEQ/L (21-32); CHLORIDE LEVEL 107 MEQ/L (98-107); CREATININE FOR GFR 0.71 MG/DL (0.55-1.30); GLOMERULAR FILTRATION RATE > 60.0 (>60); GLUCOSE, FASTING 74 MG/DL (70-100); POTASSIUM SERUM 4.2 MEQ/L (3.5-5.1); SODIUM LEVEL 139 MEQ/L (136-145); TOTAL PROTEIN 6.5 GM/DL (6.4-8.2)
== END ==
LOC: M PLALAB 15:23
PROVIDERS: ATTEND Obstetrics & Gynecology
DX: O99.713 Diseases of the skin and subcutaneous tissue complicating pregnancy, third trimester (principal); Z3A.00 Weeks of gestation of pregnancy not specified

== ENCOUNTER → 2021-09-11 | Outpatient (CLI) | payer BC, OTHER | LOC: M PLALAB 09:33 | PROVIDERS: ATTEND Advanced Practice Midwife | DX: O10.012 Pre-existing essential hypertension complicating pregnancy, second trimester (principal) ==

== ENCOUNTER 2021-09-17 11:30 | Outpatient (CLI) | payer BC, OTHER ==
[~2021-09-17] VITALS: Ht 162.6 cm; Wt 104.6 kg
[2021-09-17] MEDS ORDERED: CLAR5TAB11 PO (11:43)
[2021-09-17] MEDS ORDERED: ONDA8TAB8 PO (11:43)
[2021-09-17] MEDS ORDERED: BENA20TA PO (11:43)
[2021-09-17 11:44] VITALS: BP 138/83
[2021-09-17] MEDS ORDERED: HOME MED LIST COMPLETE! XX SCH (11:45)
== END 2021-09-17 13:02 | disposition home or self-care (01) ==
LOC: M LDO 11:30 → EEVIPCON 11:30 → M LDO 13:02
PROVIDERS: ATTEND Advanced Practice Midwife
DX: O26.893 Other specified pregnancy related conditions, third trimester (principal); N89.8 Other specified noninflammatory disorders of vagina; O36.8130 Decreased fetal movements, third trimester, not applicable or unspecified; Z3A.31 31 weeks gestation of pregnancy
CPT/HCPCS: 59025; 87070; 87077; 87186; G0463

== ENCOUNTER → 2021-10-04 | Outpatient (CLI) | payer BC, OTHER ==
[~2021-10-04] MED LIST changes: +BENA20TA PO; +CLAR5TAB11 PO; +ONDA8TAB8 PO
== END ==
LOC: M WHC 10:33
PROVIDERS: ATTEND Obstetrics & Gynecology
DX: O10.013 Pre-existing essential hypertension complicating pregnancy, third trimester (principal); Z3A.33 33 weeks gestation of pregnancy

== ENCOUNTER → 2021-10-16 | Outpatient (REF) | payer OTHER ==
[~2021-10-16] MED LIST changes: +ACET325C5 PO
== END ==
LOC: M SFHCWAGY 13:08
PROVIDERS: ATTEND Specialist
DX: Z36.89 Encounter for other specified antenatal screening (principal)

== ENCOUNTER 2021-10-17 13:50 | Outpatient (CLI) | payer OTHER ==
[~2021-10-17] VITALS: Ht 162.6 cm; Wt 106.3 kg
[2021-10-17] VITALS (9 sets, daily range): BP systolic 103–128; BP diastolic 57–77
[~2021-10-17 13:50] MED LIST changes: -ACET325C5 PO
[2021-10-17] MEDS ORDERED: TUMS500C PO (14:17)
[2021-10-17] MEDS ORDERED: ACET325C5 PO (14:17)
[2021-10-17] MEDS ORDERED: FIORICET TAB PO ONE (14:40)
== END 2021-10-17 16:15 | disposition home or self-care (01) ==
LOC: M LDO 13:50
PROVIDERS: ATTEND Advanced Practice Midwife
DX: O13.3 Gestational [pregnancy-induced] hypertension without significant proteinuria, third trimester (principal); O26.893 Other specified pregnancy related conditions, third trimester; R51.0 Headache with orthostatic component, not elsewhere classified; Z3A.35 35 weeks gestation of pregnancy
CPT/HCPCS: 59025; G0378; G0463

== ENCOUNTER → 2022-09-30 | Outpatient (CLI) | payer OTHER ==
[~2022-09-30] MED LIST changes: +ACET325C5 PO; -LABE200T3 PO; +LABE200T5 PO
[2022-09-30 13:34] LABS: URIC ACID 4.8 MG/DL (3.1-7.8)
[2022-09-30 13:36] LABS: LDH LACTATE DEHYDROGENASE 170 U/L (120-246)
[2022-09-30 13:37] LABS: ALT/SGPT 18 U/L (7.0-40); AST/SGOT 15 U/L (<34); BILIRUBIN,TOTAL 0.3 MG/DL (0.3-1.2); CREATININE FOR GFR 0.74 MG/DL (0.55-1.30); GLOMERULAR FILTRATION RATE > 60.0 (>60)
[2022-09-30 13:42] LABS: HEMATOCRIT 37.5 % (36.0-47.0); HEMOGLOBIN 11.9 g/dl (12.0-15.5); MEAN CORPUSCULAR HEMOGLOBIN 24.5 pg (27.0-33.0); MEAN CORPUSCULAR HGB CONC 31.7 g/dl (32.0-36.5); MEAN CORPUSCULAR VOLUME 77.2 fl (80.0-96.0); PLATELET COUNT, AUTOMATED 167 10^3/uL (150-450); RED BLOOD COUNT 4.86 10^6/uL (4.00-5.40); WHITE BLOOD COUNT 4.7 10^3/uL (4.0-10.0)
[2022-09-30 14:02] LABS: CREATININE,RANDOM URINE 142.6 MG/DL; HIV 1&2 SCREEN ATELLICA NEGATIVE (NEGATIVE)
[2022-09-30 14:55] LABS: GC DNA AMPLIFICATION NEGATIVE (NEGATIVE)
== END ==
LOC: M PLALAB 11:01
PROVIDERS: ATTEND Advanced Practice Midwife
DX: O99.341 Other mental disorders complicating pregnancy, first trimester (principal); O10.011 Pre-existing essential hypertension complicating pregnancy, first trimester